=== PATIENT | female | born 1970 | race Caucasian/White ===

== ENCOUNTER 2019-10-08 02:41 | Emergency (ER) | payer BC ==
[2019-10-08] MEDS ORDERED: SODIUM CHLORIDE 0.9% 1,000 ML IV STA ×2 (02:51)
[2019-10-08] MEDS ORDERED: MORPHINE SULFATE 4 MG/ML SYRINGE IV STA (02:51)
--- NOTE | 2019-10-08 02:51 | ED ---
Chest Pain HPI - General Chief Complaint: Chest Pain Stated Complaint: Abd/Back/Chest Pain Time Seen by Provider: 10/08/19 02:49 Source: patient, RN notes reviewed, old records reviewed Mode of arrival: ambulatory Limitations: no limitations - History of Present Illness Initial Comments: This is a 41-year-old female DF for evaluation multiple complaints, epigastric pain for about a month. She also has nausea some episodic chest pain shortness of breath as well as abdominal pain rating to her back. Denies history of drug or alcohol abuse. No recent injuries or trauma no fevers cough or congestion no generalized body pains. No modifying factors for symptoms. Some significant episodic with no relation MD Complaint: chest pain, other (Abdominal pain to back) -: week(s) Onset: during rest, during exertion Pain Location: epigastric Pain Radiation: back Severity: mild Severity scale (1-10): 3 Quality: tightness, aching Consistency: intermittent Improves With: nothing Worsens With: nothing Anginal Symptoms: dyspnea Other Symptoms: palpitations, other (Diarrhea) Treatments Prior to Arrival: other - Related Data Home Medications Medication Instructions Recorded Confirmed Spironolactone 50 mg PO DAILY 09/15/16 10/10/19 Aspirin 81 mg PO DAILY 02/28/17 10/10/19 Previous Rx's Medication Instructions Recorded Acetaminophen Tab [Tylenol] 650 mg PO Q6HR PRN tab 10/11/19 Dicyclomine [Bentyl] 20 mg PO QID PRN #20 tab 10/11/19 Nicotine 21Mg/24Hr Patch [Habitrol] 1 patch TRANSDERM DAILY #14 patch 10/11/19 Omeprazole [PriLOSEC] 40 mg PO BID #60 cap 10/11/19 Allergies Allergy/AdvReac Type Severity Reaction Status Date / Time No Known Allergies Allergy Verified 10/10/19 10:20 Review of Systems ROS Statement: Those systems with pertinent positive or pertinent negative responses have been documented in the HPI. ROS Other: All systems not noted in ROS Statement are negative. EKG Findings - EKG Comments: EKG Findings:: EKG is sinus rhythm 81, ME 170 QRS 78 QTc 446 Past Medical History Past Medical History: CVA/TIA, Hypertension, No Reported History History of Any Multi-Drug Resistant Organisms: None Reported Past Surgical History: Section Past Psychological History: No Psychological Hx Reported Smoking Status: Current every day smoker Past Alcohol Use History: Daily, Heavy Past Drug Use History: None Reported General Exam Limitations: no limitations General appearance: alert, in no apparent distress, anxious Head exam: Present: atraumatic, normocephalic, normal inspection Eye exam: Present: normal appearance, PERRL, EOMI. Absent: scleral icterus, conjunctival injection, periorbital swelling ENT exam: Present: normal exam, mucous membranes moist Neck exam: Present: normal inspection. Absent: tenderness, meningismus, lymphadenopathy Respiratory exam: Present: normal lung sounds bilaterally. Absent: respiratory distress, wheezes, rales, rhonchi, stridor Cardiovascular Exam: Present: regular rate, normal rhythm, normal heart sounds. Absent: systolic murmur, diastolic murmur, rubs, gallop, clicks GI/Abdominal exam: Present: soft, normal bowel sounds. Absent: distended, tenderness, guarding, rebound, rigid Extremities exam: Present: normal inspection, full ROM, normal capillary refill. Absent: tenderness, pedal edema, joint swelling, calf tenderness Back exam: Present: normal inspection Neurological exam: Present: alert, oriented X3, CN II-XII intact Psychiatric exam: Present: normal affect, normal mood Skin exam: Present: warm, dry, intact, normal color. Absent: rash Course Vital Signs 10/08/19 10/08/19 10/08/19 02:46 04:25 04:41 Temperature 97.9 F 98.0 F Pulse Rate 94 85 Respiratory 18 16 Rate Blood Pressure 184/103 133/98 117/93 O2 Sat by Pulse 98 94 L Oximetry - Reevaluation(s) Reevaluation #1: Medical records reviewed Patient feels improved Patient informed of results and questions answered Chest Pain MDM - [facility] 41-year-old female with abdominal pain chest pain patient is CT HSM pelvis negative for significant injury. Normal labwork, feeling better here in the ER patient will be discharged home Disposition Clinical Impression: Atypical chest pain, Abdominal pain Disposition: HOME SELF-CARE Instructions (If sedation given, give patient instructions): Abdominal Pain (ED) Is patient prescribed a controlled substance at d/c from ED?: No Referrals: Manuel Kong MD [Primary Care Provider] - 1-2 days
[2019-10-08 03:29] LABS: Basophils # (A) 0.1 k/uL (0-0.2); Basophils % (A) 1 %; Eosinophils # (A) 0.2 k/uL (0-0.7); Eosinophils % (A) 3 %; HGB 13.4 gm/dL (11.4-16.0); Lymphocytes # (A) 2.1 k/uL (1.0-4.8); Lymphocytes % (A) 34 %; MCH 29.7 pg (25.0-35.0); MCHC 33.4 g/dL (31.0-37.0); MCV 88.8 fL (80.0-100.0); Mean Platelet Volume 7.1; Monocytes # (A) 0.3 k/uL (0-1.0); Monocytes % (A) 5 %; Neutrophils # (A) 3.5 k/uL (1.3-7.7); Neutrophils % (A) 56 %; Platelet Count 280 k/uL (150-450); RBC 4.51 m/uL (3.80-5.40); RDW 12.6 % (11.5-15.5); WBC 6.3 k/uL (3.8-10.6)
[2019-10-08 03:41] LABS: ALT 44 U/L (4-34); AST 49 U/L (14-36); African American GFR (CKD) >90 (>60 ml/min/1.73 sqM); Albumin 4.7 g/dL (3.5-5.0); Alkaline Phosphatase 77 U/L (38-126); Anion Gap 13 mmol/L; Blood Urea Nitrogen 5 mg/dL (7-17); Calcium 9.5 mg/dL (8.4-10.2); Carbon Dioxide 20 mmol/L (22-30); Chloride 94 mmol/L (98-107); Glucose 99 mg/dL (74-99); Magnesium 1.8 mg/dL (1.6-2.3); Non-African American GFR(CKD) >90 (>60 ml/min/1.73 sqM); Sodium 127 mmol/L (137-145); Total Bilirubin 0.2 mg/dL (0.2-1.3); Total Protein 7.8 g/dL (6.3-8.2)
[2019-10-08] MEDS ORDERED: LABETALOL 5 MG/ML VIAL MDV IVP STA (04:11)
--- NOTE | 2019-10-08 04:15 | CT ---
EXAMINATION TYPE: CT angio chest DATE OF EXAM: 10/08/2019 COMPARISON: None HISTORY: Chest pain CT DLP: 360.1 mGycm Automated exposure control for dose reduction was used. CONTRAST: Performed with IV Contrast, patient injected with 100 mL of Isovue 370. There are 3-D post processed images. The lungs are clear of infiltrate. There is no pleural effusion. There is no mediastinal adenopathy. There are no hilar masses. Thoracic aorta is intact. There is no aneurysm or dissection. Ascending ao rta measures 3.4 cm. There is no pericardial effusion. Heart size is normal. There is normal contrast opacification of the pulmonary arteries. There are no filling defects. Thoracic spine is intact. There is no compression fracture. Bony thorax is intact. IMPRESSION: Negative exam. No evidence of pulmonary embolism.
[2019-10-08 04:16] LABS: D-Dimer 0.58 mg/L FEU (<0.60); INR 0.9 (<1.2); Partial Thromboplastin Time 26.5 sec (22.0-30.0); Prothrombin Time 9.6 sec (9.0-12.0)
--- NOTE | 2019-10-08 04:20 | CT ---
EXAMINATION TYPE: CT abdomen pelvis w con DATE OF EXAM: 10/08/2019 COMPARISON: None HISTORY: Abdomen pain CT DLP: 742 mGycm Automated exposure control for dose reduction was used. CONTRAST: Performed with IV Contrast, patient injected with 100 mL of Isovue 370. Lung bases are clear. There is no pleural effusion. Heart size is normal. There is no pericardial eff usion. Liver spleen pancreas gallbladder stomach appear normal. Bile ducts are not dilated. There is no adrenal mass. Kidneys show satisfactory contrast opacification. There is no hydronephrosi s. Delayed images show normal renal excretion. There is no retroperitoneal adenopathy. Ureters are no t dilated. Bladder distends smoothly. There is no inguinal hernia. Uterus appears normal. Uterus retr overted. There is no free fluid in the pelvis. There is no evidence of pelvic mass. There are clips a pparently from tubal ligation. Appendix is posterior and appears normal. Appendix is short. There is no mesenteric edema. There is no ascites or free air. There is no sign of a bowel obstruction. Lumbar vertebra have normal spacing and alignment. There is no compression fracture. Posterior elemen ts are intact. The bony pelvis appears normal. Hip joint spaces are normal. IMPRESSION: Negative CT scan abdomen and pelvis.
[2019-10-08 04:42] VITALS: BP 117/93; PULSE 85; RESP 16; TEMP 98
== END 2019-10-08 04:43 | disposition home or self-care (01) ==
LOC: EC 02:41
DX: R07.89 Other chest pain (principal); R10.13 Epigastric pain; I10 Essential (primary) hypertension; F17.200 Nicotine dependence, unspecified, uncomplicated; Z79.899 Other long term (current) drug therapy; Z79.82 Long term (current) use of aspirin; Z86.73 Personal history of transient ischemic attack (TIA), and cerebral infarction without residual deficits
CPT/HCPCS: 36415; 85379; 83880; 80053; 83690; 83735; 84484; 85025; 85610; 85730; 71275; 74177; 96374; 96361; 99285; J2270; Q9967

== ENCOUNTER → 2019-10-09 | Outpatient (CLI) | payer BC ==
--- NOTE | 2019-10-09 14:12 | US ---
EXAMINATION TYPE: US abdomen complete DATE OF EXAM: 10/09/2019 COMPARISON: CT CLINICAL HISTORY: R10.9 Abd pain. Pain x 2 months EXAM MEASUREMENTS: Liver Length: 16.4 cm Gallbladder Wall: 0.2 cm CBD: 0.6 cm Spleen: 8.6 cm Right Kidney: 9.6 x 4.7 x 4.3 cm Left Kidney: 9.8 x 4.8 x 4.5 cm Pancreas: wnl, tail obscured by overlying bowel gas Liver: Heterogeneous, difficult to penetrate Gallbladder: wnl Evidence for sonographic Paula's sign: No CBD: wnl Spleen: wnl Right Kidney: wnl Left Kidney: wnl Upper IVC: wnl Abd Aorta: wnl No abnormality visualized to account for pt's symptoms Results called to Eula at 's office at time of exam The intrahepatic portion of the IVC and proximal abdominal aorta are within normal limits. There is no evidence of cholelithiasis. Common bile duct is unremarkable. The visualized portions of the irwin creas are homogenous. The spleen is unremarkable. Kidneys are symmetric and free of hydronephrosis. No renal lesions are seen. IMPRESSION: The liver is noted be heterogenous which may reflect fatty liver versus diffuse hepatocellular diseas e. Correlate clinically.
== END | disposition home or self-care (01) ==
LOC: RADUSWWP 13:44
PROVIDERS: ATTEND Family Medicine
DX: R10.9 Unspecified abdominal pain (principal)
CPT/HCPCS: 76700

== ENCOUNTER 2019-10-10 09:36 | Observation (INO) | payer BC ==
[2019-10-10] MEDS ORDERED: MORPHINE SULFATE 2 MG/ML SYRINGE IVP STA (10:18)
[2019-10-10] MEDS ORDERED: SODIUM CHLORIDE 0.9% 500 ML 500 ML IV STA (10:18)
[2019-10-10] MEDS ORDERED: ONDANSETRON 4 MG/2 ML VIAL IVP STA (10:18)
--- NOTE | 2019-10-10 10:22 | ED ---
General Adult HPI - General Chief complaint: Abdominal Pain Stated complaint: Abd Pain Time Seen by Provider: 10/10/19 09:57 Source: patient Mode of arrival: ambulatory Limitations: no limitations - History of Present Illness Initial comments: Dictation was produced using [employer] dictation software. please excuse any grammatical, word or spelling errors. This patient was cared for during a federal and state declared state of emergency secondary to Covid 19 Chief Complaint: 49-year-old female sent in by primary care physician for abd ominal pain. History of Present Illness: 49-year-old female she was initially seen here in emergency department 2 days ago for right upper quadrant abdominal pain. During that visit patient had labs and imaging performed. No physician charting available at this time upon EMR review. On the day however patient had CT angios those performed showing no acute processes. She had CT of the abdomen and pelvis showing no acute processes. She did have some labs drawn at that time showing no leukocytosis. She did have cervical 127. Slight elevation of liver Leandro however not impressive. She was discharged and told to follow-up with her primary care physician. Her primary care physician ordered a ultrasound of the right upper quadrant. Showing heterogeneous liver texture concerning for hepatocellular disease. She called her primary care physician back and was instructed to the emergency department. She was supposed to have a HIDA scan in the near future however considering her pain seemed worse she was told to come to the emergency department. Patient has any constitutional sympt oms. She complains of nausea but no vomiting. No diarrhea. She states the pain is constant. The ROS documented in this emergency department record has been reviewed and confirmed by me. Those systems with pertinent positive or negative responses have been documented in the HPI. All other systems are other negative and/or noncontributory. PHYSICAL EXAM: General Impression: Alert and oriented x3, not in acute distress HEENT: Normocephalic atraumatic, extra-ocular movements intact, pupils equal and reactive to light bilaterally, mucous membranes moist. Cardiovascular: Heart regular rate and rhythm Chest: Able to complete full sentences, no retractions, no tachypnea Abdomen: abdomen soft, tenderness to the right upper quadrant, negative Paula sign, non-distended, no organomegaly Musculoskeletal: Pulses present and equal in all extremities, no peripheral edema Motor: no focal deficits noted Neurological: CN II-XII grossly intact, no focal motor or sensory deficits noted Skin: Intact with no visualized rashes Psych: Normal affect and mood ED course: 49 old female presents with right upper quadrant abdominal pain. Said pain that she's been experiencing has been constant for several days. She was seen in emergency department 3 days ago where no acute processes were identified. Laboratory evaluation obtained. CBC unremarkable. Metabolic panel shows sodium 132. No anion gap. Mildly acidotic. AST is 71, ALT is 50. Urinalysis is unremarkable. Discussed patient case with Dr. Posada who is willing to accept patients care. GI and general surgery's on consult. - Related Data Home Medications Medication Instructions Recorded Confirmed Spironolactone 50 mg PO DAILY 09/15/16 10/10/19 Aspirin 81 mg PO DAILY 02/28/17 10/10/19 Omeprazole [PriLOSEC] 40 mg PO DAILY 10/10/19 10/10/19 Allergies Allergy/AdvReac Type Severity Reaction Status Date / Time No Known Allergies Allergy Verified 10/10/19 10:20 Review of Systems ROS Statement: Those systems with pertinent positive or pertinent negative responses have been documented in the HPI. ROS Other: All systems not noted in ROS Statement are negative. Past Medical History Past Medical History: CVA/TIA, Hypertension, No Reported History History of Any Multi-Drug Resistant Organisms: None Reported Past Surgical History: Section Past Psychological History: No Psychological Hx Reported Smoking Status: Current every day smoker Past Alcohol Use History: Daily, Heavy Past Drug Use History: None Reported General Exam Limitations: no limitations Course Vital Signs 10/10/19 10/10/19 09:51 11:22 Temperature 98.4 F Pulse Rate 108 H 69 Respiratory 20 18 Rate Blood Pressure 199/106 142/101 O2 Sat by Pulse 99 99 Oximetry Medical Decision Making - Lab Data Result diagrams: 10/10/19 10:20 10/10/19 10:20 Lab Results 10/10/19 10/10/19 10/10/19 Range/Units 10:20 10:20 11:22 WBC 6.4 (3.8-10.6) k/uL RBC 4.63 (3.80-5.40) m/uL Hgb 13.4 (11.4-16.0) gm/dL Hct 41.6 (34.0-46.0) % MCV 89.8 (80.0-100.0) fL MCH 28.9 (25.0-35.0) pg MCHC 32.2 (31.0-37.0) g/dL RDW 12.7 (11.5-15.5) % Plt Count 277 (150-450) k/uL Neutrophils % 73 % Lymphocytes % 17 % Monocytes % 5 % Eosinophils % 2 % Basophils % 1 % Neutrophils # 4.7 (1.3-7.7) k/uL Lymphocytes # 1.1 (1.0-4.8) k/uL Monocytes # 0.3 (0-1.0) k/uL Eosinophils # 0.1 (0-0.7) k/uL Basophils # 0.1 (0-0.2) k/uL Sodium 132 L (137-145) mmol/L Potassium 4.5 (3.5-5.1) mmol/L Chloride 101 (98-107) mmol/L Carbon Dioxide 20 L (22-30) mmol/L Anion Gap 11 mmol/L BUN 5 L (7-17) mg/dL Creatinine 0.64 (0.52-1.04) mg/dL Est GFR (CKD-EPI)AfAm >90 (>60 ml/min/1.73 sqM) Est GFR (CKD-EPI)NonAf >90 (>60 ml/min/1.73 sqM) Glucose 95 (74-99) mg/dL Calcium 10.2 (8.4-10.2) mg/dL Total Bilirubin 0.7 (0.2-1.3) mg/dL AST 71 H (14-36) U/L ALT 50 H (4-34) U/L Alkaline Phosphatase 74 (38-126) U/L Total Protein 7.8 (6.3-8.2) g/dL Albumin 4.5 (3.5-5.0) g/dL Lipase 201 (23-300) U/L Urine Color Light Yellow Urine Appearance Clear (Clear) Urine pH 5.0 (5.0-8.0) Ur Specific [place] 1.003 (1.001-1.035) Urine Protein Negative (Negative) Urine Glucose (UA) Negative (Negative) Urine Ketones 1+ H (Negative) Urine Blood Negative (Negative) Urine Nitrite Negative (Negative) Urine Bilirubin Negative (Negative) Urine Urobilinogen <2.0 (<2.0) mg/dL Ur Leukocyte Esterase Negative (Negative) Disposition Clinical Impression: Abdominal pain Disposition: ADMITTED IP TO THIS HOSP Condition: Fair Referrals: Manuel Kong MD [Primary Care Provider] - 1-2 days Decision Time: 11:44
[2019-10-10 10:32] LABS: Basophils # (A) 0.1 k/uL (0-0.2); Basophils % (A) 1 %; Eosinophils # (A) 0.1 k/uL (0-0.7); Eosinophils % (A) 2 %; HCT 41.6 % (34.0-46.0); HGB 13.4 gm/dL (11.4-16.0); Lymphocytes # (A) 1.1 k/uL (1.0-4.8); Lymphocytes % (A) 17 %; MCH 28.9 pg (25.0-35.0); MCHC 32.2 g/dL (31.0-37.0); MCV 89.8 fL (80.0-100.0); Mean Platelet Volume 7.2; Monocytes # (A) 0.3 k/uL (0-1.0); Monocytes % (A) 5 %; Neutrophils # (A) 4.7 k/uL (1.3-7.7); Neutrophils % (A) 73 %; Platelet Count 277 k/uL (150-450); RBC 4.63 m/uL (3.80-5.40); RDW 12.7 % (11.5-15.5); WBC 6.4 k/uL (3.8-10.6)
[2019-10-10 11:00] LABS: ALT 50 U/L (4-34); AST 71 U/L (14-36); African American GFR (CKD) >90 (>60 ml/min/1.73 sqM); Albumin 4.5 g/dL (3.5-5.0); Alkaline Phosphatase 74 U/L (38-126); Anion Gap 11 mmol/L; Blood Urea Nitrogen 5 mg/dL (7-17); Calcium 10.2 mg/dL (8.4-10.2); Carbon Dioxide 20 mmol/L (22-30); Chloride 101 mmol/L (98-107); Glucose 95 mg/dL (74-99); Non-African American GFR(CKD) >90 (>60 ml/min/1.73 sqM); Potassium 4.5 mmol/L (3.5-5.1); Sodium 132 mmol/L (137-145); Total Bilirubin 0.7 mg/dL (0.2-1.3); Total Protein 7.8 g/dL (6.3-8.2)
[2019-10-10 11:40] LABS: Appearance,Urine Clear (Clear); Bilirubin,Urine Negative (Negative); Blood,Urine Negative (Negative); Color,Urine Light Yellow; Glucose,Urine (UA) Negative (Negative); Ketones,Urine 1+ (Negative); Leukocyte Esterase,Urine Negative (Negative); Nitrite,Urine Negative (Negative); Protein,Urine Negative (Negative); Specific Gravity,Urine 1.003 (1.001-1.035); Urobilinogen,Urine <2.0 mg/dL (<2.0)
[2019-10-10] MEDS ORDERED: MORPHINE SULFATE 4 MG/ML SYRINGE IV PRN (11:41)
[2019-10-10] MEDS ORDERED: ONDANSETRON 4 MG/2 ML VIAL IVP PRN (11:41)
[2019-10-10] MEDS ORDERED: ACETAMINOPHEN TAB 325 MG TAB PO PRN (11:41)
[2019-10-10] MEDS ORDERED: NALOXONE 0.4 MG/ML 1 ML VIAL IV PRN (11:41)
[2019-10-10] MEDS ORDERED: SODIUM CHLORIDE 0.9% 1,000 ML IV SCH (11:45)
[2019-10-10] MEDS: LACTATED RINGERS 1,000 ML IV SCH ×2 (15:35→21:11)
[2019-10-10] MEDS: ENOXAPARIN 40 MG/0.4 ML SYRINGE SQ SCH (15:35)
[2019-10-10] MEDS: CALCIUM CARBONATE LIQUID 500 MG/5 ML CUP PO SCH ×3 (15:36→21:12)
--- NOTE | 2019-10-10 18:04 | P.HPIM ---
History of Present Illness H&P Date: 10/10/19 Chief Complaint: Abdominal pain History of presenting complaint: This is a pleasant 49-year-old patient of Dr. Manuel Kong. Chronic stable medical conditions include hypertension, polycystic ovarian syndrome, chronic nicotine dependence. Patient has a diagnosis of stroke in the past was given TPA. At that time and affect a speech. Following TPA the speech corrected. Patient has long-standing reflux symptoms. Patient smokes a pack a day since drinks about 6 beers at a plus minus she states. Patient now presents with increasing upper abdominal pain sometimes in the right upper quadrant sonogram going to the back. She is also noticing increasing burning sensation in the epigastrium going up to the chest. Also significant nausea. Patient was here in the ER on October 07. Chest CT was negative for PE. Computed tomography scan of the abdomen and pelvis was negative. Patient was sent home. Yesterday patient had an abdominal ultrasound ordered by her family doctor-evidence of gallstones." Unremarkable. Liver was noted to be heterogenesis. Patient was d ue to have a HIDA scan as an outpatient. Because her symptoms worsening. She came back to the ER. Patient does continue to smoke and drink alcohol. Patient appetite has not been good. Patient's pain is somewhat constant. Maybe worsening with oral intake. Denies any fever and chills. Review of systems: GEN.: Decreased appetite EYES: None HEENT: None NECK: None RESPIRATORY: None CARDIOVASCULAR: None GASTROINTESTINAL: As above GENITOURINARY: None MUSCULOSKELETAL: None LYMPHATICS: None HEMATOLOGICAL: None PSYCHIATRY: Slightly anxious NEUROLOGICAL: None Past medical history to include: History of stroke. TPA, GERD, hypertension, polycystic ovarian syndrome for which she takes Aldactone. Social history: Patient is smoking a pack a day for many years and also quit drinking average of 6 beers a day for quite some time. . Family history: Reviewed, noncontributory to presentation Physical examination: VITAL SIGNS: 98.4, 108, 20, 142/101, 99% room air GENERAL: BMI 24.5, sitting up at bed, somewhat uncomfortable. EYES: Pupils equal. Conjunctiva normal. HEENT: External appearance of nose and ears normal, oral cavity grossly normal. NECK: JVD not raised; masses not palpable. HEART: First and second heart sounds are normal; no edema. LUNGS: Respiratory rate increased, decreased breath sounds mild wheezing. ABDOMEN: Soft, upper abdominal tenderness, no guarding rigidity, negative Paula's sign, liver spleen not palpable, no masses palpable. PSYCH: [Alert and oriented x3; mood and affect anxious. NEUROLOGICAL: Cranial nerves grossly intact; no facial asymmetry, power and sensation grossly intact. LYMPHATICS: No lymph nodes palpable in the axilla and neck INVESTIGATIONS, reviewed in the clinical context: White count 6.4 hemoglobin 13.4 platelets 277 potassium 4.5 creatinine 0.64 AST 71 ALT 50 UA positive for ketones 1+ Computed tomography scan of the abdomen and pelvis, abdominal ultrasound results as above Assessment: -Distal patient is a long-standing smoker and drinks at least 6 beers a day more so in the past. Patient has significant reflux symptoms in the past and otherwise generalized pain in the upper abdomen and burning sensation in the chest. Computed tomography scan of the abdomen and ultrasound resolving remarkable except patient most likely liver findings of that from hepatic steatosis and alcoholic hepatitis. There are no gallstones demonstrated. Most likely we are dealing with gastritis and esophagitis, peptic ulcer disease cannot be ruled out. Possibility of dyskinetic gallbladder still persist. -Emphysema, secondary to active smoking -Chronic nicotine dependence cigarette smoker -Alcohol use disorder -Essential hypertension -Polycystic ovarian syndrome Plan: Patient be started on PPI liquid Tums for symptom control. GI has been consulted for the due to EGD tomorrow. We'll also get a general surgery con sultation. HIDA scan has been ordered. If patient's symptoms are significantly better with the PPI in and Tums, that'll be the most likely cause of her presentation. Patient advised against smoking and alcohol. We'll put the patient on a CIWA scale. Also put a small dose of Valium scheduled for DVT prophylaxis. We will also order a chest x-ray. Patient also put on nebulized bronchodilators and inhaled steroids. Smoke cessation counseling: This was done with the patient. Nicotine patch is being given. More than 3 minutes was spent for this Past Medical History Past Medical History: No Reported History, CVA/TIA, GERD/Reflux, Hypertension Additional Past Medical History / Comment(s): 2016 difficulty with speech/pt received TPA with resolvement of speech problem but was told later she did not have a stroke, toxemia with and lately b/p has been running higher pt thinks d/t abdominal pain, PCOS. History of Any Multi-Drug Resistant Organisms: None Reported Past Surgical History: Section, Tubal Ligation Additional Past Surgical History / Comment(s): MAURO, cystoscopy, L ganglion cyst removed, hysteroscopy-unable to do ablation d/t bladder adhered to uterus, D&C, bilateral myringotomy/tubes Past Anesthesia/Blood Transfusion Reactions: No Reported Reaction Smoking Status: Current every day smoker - Past Family History Father Family Medical History: COPD, Hyperlipidemia, Hypertension Mother Family Medical History: Coronary Artery Disease (CAD), Diabetes Mellitus, Hyperlipidemia, Hypertension Additional Family Medical History / Comment(s): Mother had CABG at the age of 52 yrs. Medications and Allergies Home Medications Medication Instructions Recorded Confirmed Type Spironolactone 50 mg PO DAILY 09/15/16 10/10/19 History Aspirin 81 mg PO DAILY 02/28/17 10/10/19 History Omeprazole [PriLOSEC] 40 mg PO DAILY 10/10/19 10/10/19 History Allergies Allergy/AdvReac Type Severity Reaction Status Date / Time No Known Allergies Allergy Verified 10/10/19 10:20 Physical Exam Vitals: Vital Signs Temp Pulse Resp BP Pulse Ox 10/10/19 15:38 67 18 140/97 99 10/10/19 12:29 86 18 144/98 96 10/10/19 11:22 69 18 142/101 99 10/10/19 09:51 98.4 F 108 H 20 199/106 99 Intake and Output 10/10/19 10/10/19 10/10/19 06:59 14:59 22:59 Other: Weight 60.645 kg Results CBC & Chem 7: 10/10/19 10:20 10/10/19 10:20 Labs: Abnormal Lab Results - Last 24 Hours (Table) 10/10/19 10/10/19 Range/Units 10:20 11:22 Sodium 132 L (137-145) mmol/L Carbon Dioxide 20 L (22-30) mmol/L BUN 5 L (7-17) mg/dL AST 71 H (14-36) U/L ALT 50 H (4-34) U/L Urine Ketones 1+ H (Negative) Thrombosis Risk Factor Assmnt - Choose All That Apply Any of the Below Risk Factors Present?: Yes Each Factor Represents 1 point: Age 41-60 years Other Risk Factors: No Other congenital or acquired thrombophilia - If yes, enter type in comment: No Thrombosis Risk Factor Assessment Total Risk Factor Score: 1 Thrombosis Risk Factor Assessment Level: Low Risk
--- NOTE | 2019-10-10 18:08 | NM ---
EXAMINATION TYPE: NM hepatobiliary w CCK DATE OF EXAM: 10/10/2019 COMPARISON: NONE HISTORY: Pain TECHNIQUE: After the intravenous administration of 4.96 mCi Tc 99m Mebrofenin hepatobiliary scintigra phy is performed. Immediate images post injection. FINDINGS: There is satisfactory initial accumulation of tracer by the liver. The gallbladder is visualized wit hin 25 minutes. The small bowel activity is noted within 45 minutes. At one hour CCK was administer ed, patient was injected with 1.2 mcg of Kinevac, and gallbladder ejection fraction is calculated at 40 %, in the normal range. Therefore there is no scintigraphic evidence of cystic or common bile [place] t obstruction to suggest acute cholecystitis or gallbladder dyskinesia. IMPRESSION: Exam is within normal limits.
[2019-10-10] MEDS: PANTOPRAZOLE 40 MG TABLET PO SCH (19:21)
[2019-10-10] MEDS: NICOTINE 21MG/24HR PATCH TRANSDERM SCH (19:21)
[2019-10-10] MEDS: diazePAM 2 MG TAB PO SCH (19:21)
[2019-10-10] MEDS: DICYCLOMINE 20 MG TAB PO SCH (22:42)
[2019-10-11] MEDS: diazePAM 2 MG TAB PO SCH ×2 (00:44→11:51)
--- NOTE | 2019-10-11 00:50 | P.CONS ---
History of Present Illness - Reason for Consult Consult date: 10/10/19 Abdominal pain Requesting physician: Carlos Posada - Chief Complaint Abdominal pain - History of Present Illness 49-year-old female with a medical history significant for hypertension, polycystic ovarian syndrome, nicotine use, and GERD who presented to the hospital for evaluation of abdominal pain. Patient was previously seen in the ER for similar complaint complaints a few days. Computed tomography scan of the abdomen was negative for any acute intra-abdominal process. Ultrasound of the abdomen showed a heterogeneous liver with no other acute findings. She reports pain in the right upper quadrant of her abdomen which has been going on for the past 2 months. This is been worse over the past 4 days. She describes it as sharp and constant. No prior episodes of similar pain. No regular NSAID use. No history of peptic ulcer disease. She does report nausea but no vomiting. She has a history of omeprazole therapy for treatment of reflux and reports this is fairly well-controlled, however if she misses a dose of omeprazole symptoms will be present. Generally bowel movements have been normal, however recently she has been having loose bowel movements. She denies any inciting event causing her symptoms including travel, unusual foods, sick contacts or new medications. No signs or symptoms of GI bleeding. No prior EGD. Review of Systems REVIEW OF SYSTEMS: CONSTITUTIONAL: Denies any fevers, chills, weight change or fatigue. CARDIOVASCULAR: Denies any chest pain, palpitations high or low blood pressures RESPIRATORY: Denies any shortness of breath, hemoptysis or cough. GENITOURINARY: No dysuria or hematuria. MUSCULOSKELETAL: No weakness reported. SKIN: Denies any new rashes or lesions, jaundice or pallor. PSYCHIATRIC: Denies any depression or anxiety. NEUROLOGY: Denies headache, denies any new focal deficits. EARS/NOSE/THROAT: No recent hearing change, congestion, nasal discharge or sore throat. EYES: No pain in eyes, discharge or change in vision. GASTROINTESTINAL: As per HPI. Past Medical History Past Medical History: No Reported History, CVA/TIA, GERD/Reflux, Hypertension Additional Past Medical History / Comment(s): 2016 difficulty with speech/pt received TPA with resolvement of speech problem but was told later she did not have a stroke, toxemia with and lately b/p has been running higher pt thinks d/t abdominal pain, PCOS. History of Any Multi-Drug Resistant Organisms: None Reported Past Surgical History: Section, Tubal Ligation Additional Past Surgical History / Comment(s): MAURO, cystoscopy, L ganglion cyst removed, hysteroscopy-unable to do ablation d/t bladder adhered to uterus, D&C, bilateral myringotomy/tubes Past Anesthesia/Blood Transfusion Reactions: No Reported Reaction Smoking Status: Current every day smoker - Past Family History Father Family Medical History: COPD, Hyperlipidemia, Hypertension Mother Family Medical History: Coronary Artery Disease (CAD), Diabetes Mellitus, Hyperlipidemia, Hypertension Additional Family Medical History / Comment(s): Mother had CABG at the age of 52 yrs. Medications and Allergies Home Medications Medication Instructions Recorded Confirmed Type Spironolactone 50 mg PO DAILY 09/15/16 10/10/19 History Aspirin 81 mg PO DAILY 02/28/17 10/10/19 History Omeprazole [PriLOSEC] 40 mg PO DAILY 10/10/19 10/10/19 History Allergies Allergy/AdvReac Type Severity Reaction Status Date / Time No Known Allergies Allergy Verified 10/10/19 10:20 Physical Exam Vitals: Vital Signs Temp Pulse Resp BP Pulse Ox 10/10/19 12:29 86 18 144/98 96 10/10/19 11:22 69 18 142/101 99 10/10/19 09:51 98.4 F 108 H 20 199/106 99 Intake and Output 10/09/19 10/10/19 10/10/19 22:59 06:59 14:59 Other: Weight 60.645 kg On physical examination, patient appears comfortable in no apparent distress. HEAD: Normocephalic, atraumatic. EYES: No scleral icterus. No conjunctival injection. MOUTH: No lesions, tongue midline. NECK: Trachea midline, no gross abnormalities. CHEST: Clear to auscultation with no wheezing or rhonchi appreciated. HEART: Regular rate and rhythm. ABDOMEN: Soft, mildly tender to palpation. Bowel sounds are positive. No organomegaly. No guarding or rigidity. EXTREMITIES: No pedal edema. SKIN: No rashes, no jaundice. NEUROLOGIC: Alert and oriented x3. No focal deficits. Results CBC & Chem 7: 10/10/19 10:20 10/10/19 10:20 Labs: Abnormal Lab Results - Last 24 Hours (Table) 10/10/19 10/10/19 Range/Units 10:20 11:22 Sodium 132 L (137-145) mmol/L Carbon Dioxide 20 L (22-30) mmol/L BUN 5 L (7-17) mg/dL AST 71 H (14-36) U/L ALT 50 H (4-34) U/L Urine Ketones 1+ H (Negative) CT scan - abdomen: report reviewed (Computed tomography scan of the abdomen negative for any intra-abdominal process with ultrasound significant for heterogeneous appearing liver.) Assessment and Plan (1) Abdominal pain Narrative/Plan: 49-year-old female with multiple medical comorbidities who presented back to the hospital after recently being seen in the ER with complaints of abdominal pain. She reports abdominal pain present over the past 2 months, worse over the 4 days prior to admission. Computed tomography scan performed in evaluation negative, ultrasound of the abdomen significant for heterogeneous liver. No prior episodes of similar pain the patient denies any history of peptic ulcer disease or regular NSAID use. She has been having some increased loose stool recently but denies any signs or symptoms of GI bleeding. Unclear etiology, may be related to uncontrolled reflux disease, underlying fibromyalgia, functional bowel disorder, peptic ulcer disease or other etiology. Current Visit: Yes Status: Acute Code(s): R10.9 - UNSPECIFIED ABDOMINAL PAIN SNOMED Code(s): 82612001 (2) GERD (gastroesophageal reflux disease) Current Visit: Yes Status: Acute Code(s): K21.9 - GASTRO-ESOPHAGEAL REFLUX DISEASE WITHOUT ESOPHAGITIS SNOMED Code(s): 599657668 Plan: Supportive care Clear liquid diet Nothing by mouth after midnight Plan for EGD tomorrow for further evaluation Bentyl added 4 times a day for abdominal pain Continue to monitor CBC, BMP, LFTs Thank you for allowing us to participate in the care of this patient we will continue to follow
[2019-10-11] MEDS: LACTATED RINGERS 1,000 ML IV SCH ×2 (04:02→10:44)
--- NOTE | 2019-10-11 06:06 | P.GSCN ---
History of Present Illness Consult date: 10/10/19 History of present illness: Patient seen and evaluated. Has been at bedside. Patient reports 2 months history of upper abdominal pain. Multiple diagnostic studies performed including CT of the abdomen and pelvis, ultrasound of the abdomen. Patient reports getting a HIDA scan. She also reports pain become moderate to severe crampy nature since Monday, the past 4 days leading to her admission. She reports hunger. She also reports thirst. At present, pain is tolerable. General surgery is consulted regarding bilateral upper abdominal pain. STUDIES: HIDA scan of the gallbladder demonstrates normal ejection fraction over 40% per report US gallbladder independently reviewed without gallstones or thickened gallbladder wall identified. CT of the abdomen and pelvis also independently reviewed without any free air, small bowel discharge and, intra-abdominal pathology. ASSESSMENT: 1. Subacute to chronic bilateral upper abdominal pain. PLAN: 1. All diagnostic studies at this point demonstrates no acute abdomen. 2. May benefit from assessment of endoscopy which may be performed as outpatient. 3. May start diet. 4. Follow-up as outpatient. Past Medical History Past Medical History: No Reported History, CVA/TIA, GERD/Reflux, Hypertension Additional Past Medical History / Comment(s): 2016 difficulty with speech/pt received TPA with resolvement of speech problem but was told later she did not have a stroke, toxemia with and lately b/p has been running higher pt thinks d/t abdominal pain, PCOS. History of Any Multi-Drug Resistant Organisms: None Reported Past Surgical History: Section, Tubal Ligation Additional Past Surgical History / Comment(s): MAURO, cystoscopy, L ganglion cyst removed, hysteroscopy-unable to do ablation d/t bladder adhered to uterus, D&C, bilateral myringotomy/tubes Past Anesthesia/Blood Transfusion Reactions: No Reported Reaction Smoking Status: Current every day smoker - Past Family History Father Family Medical History: COPD, Hyperlipidemia, Hypertension Mother Family Medical History: Coronary Artery Disease (CAD), Diabetes Mellitus, Hyperlipidemia, Hypertension Additional Family Medical History / Comment(s): Mother had CABG at the age of 52 yrs. Medications and Allergies Home Medications Medication Instructions Recorded Confirmed Type Spironolactone 50 mg PO DAILY 09/15/16 10/10/19 History Aspirin 81 mg PO DAILY 02/28/17 10/10/19 History Omeprazole [PriLOSEC] 40 mg PO DAILY 10/10/19 10/10/19 History Allergies Allergy/AdvReac Type Severity Reaction Status Date / Time No Known Allergies Allergy Verified 10/10/19 10:20 Surgical - Exam Vital Signs Temp Pulse Resp BP Pulse Ox 98.4 F 108 H 20 199/106 99 10/10/19 09:51 10/10/19 09:51 10/10/19 09:51 10/10/19 09:51 10/10/19 09:51 Results - Labs 10/10/19 10:20 10/10/19 10:20 Abnormal Lab Results - Last 24 Hours (Table) 10/10/19 10/10/19 Range/Units 10:20 11:22 Sodium 132 L (137-145) mmol/L Carbon Dioxide 20 L (22-30) mmol/L BUN 5 L (7-17) mg/dL AST 71 H (14-36) U/L ALT 50 H (4-34) U/L Urine Ketones 1+ H (Negative) Diabetes panel 10/10/19 Range/Units 10:20 Sodium 132 L (137-145) mmol/L Potassium 4.5 (3.5-5.1) mmol/L Chloride 101 (98-107) mmol/L Carbon Dioxide 20 L (22-30) mmol/L BUN 5 L (7-17) mg/dL Creatinine 0.64 (0.52-1.04) mg/dL Glucose 95 (74-99) mg/dL Calcium 10.2 (8.4-10.2) mg/dL AST 71 H (14-36) U/L ALT 50 H (4-34) U/L Alkaline Phosphatase 74 (38-126) U/L Total Protein 7.8 (6.3-8.2) g/dL Albumin 4.5 (3.5-5.0) g/dL Calcium panel 10/10/19 Range/Units 10:20 Calcium 10.2 (8.4-10.2) mg/dL Albumin 4.5 (3.5-5.0) g/dL Pituitary panel 10/10/19 Range/Units 10:20 Sodium 132 L (137-145) mmol/L Potassium 4.5 (3.5-5.1) mmol/L Chloride 101 (98-107) mmol/L Carbon Dioxide 20 L (22-30) mmol/L BUN 5 L (7-17) mg/dL Creatinine 0.64 (0.52-1.04) mg/dL Glucose 95 (74-99) mg/dL Calcium 10.2 (8.4-10.2) mg/dL Adrenal panel 10/10/19 Range/Units 10:20 Sodium 132 L (137-145) mmol/L Potassium 4.5 (3.5-5.1) mmol/L Chloride 101 (98-107) mmol/L Carbon Dioxide 20 L (22-30) mmol/L BUN 5 L (7-17) mg/dL Creatinine 0.64 (0.52-1.04) mg/dL Glucose 95 (74-99) mg/dL Calcium 10.2 (8.4-10.2) mg/dL Total Bilirubin 0.7 (0.2-1.3) mg/dL AST 71 H (14-36) U/L ALT 50 H (4-34) U/L Alkaline Phosphatase 74 (38-126) U/L Total Protein 7.8 (6.3-8.2) g/dL Albumin 4.5 (3.5-5.0) g/dL
[2019-10-11 08:49] VITALS: BMI 24.4
[2019-10-11] MEDS ORDERED: PANTOPRAZOLE 40 MG/10 ML VIAL IV SCH (09:00)
[2019-10-11] MEDS ORDERED: IV FLUID CONTINUATION 1,000 ML IV ONE (10:58)
[2019-10-11] MEDS ORDERED: PROPOFOL 10 MG/ML 20 ML VIAL IV ONE (10:59)
--- NOTE | 2019-10-11 11:32 | P.PCN ---
Date of Procedure: 10/11/19 Description of Procedure: BRIEF HISTORY: 49-year-old female with a medical history significant for hypertension, polycystic ovarian syndrome, nicotine use, and GERD who presented to the hospital for evaluation of abdominal pain. Patient was previously seen in the ER for similar complaint complaints a few days. Computed tomography scan of the abdomen was negative for any acute intra-abdominal process. Ultrasound of the abdomen showed a heterogeneous liver with no other acute findings. She reports pain in the right upper quadrant of her abdomen which has been going on for the past 2 months. This is been worse over the past 4 days. She describes it as sharp and constant. No prior episodes of similar pain. No regular NSAID use. No history of peptic ulcer disease. She does report nausea but no vomiting. She has a history of omeprazole therapy for treatment of reflux and reports this is fairly well-controlled, however if she misses a dose of omeprazole symptoms will be present. Generally bowel movements have been normal, however recently she has been having loose bowel movements. She denies any inciting event causing her symptoms including travel, unusual foods, sick contacts or new medications. No signs or symptoms of GI bleeding. No prior EGD. PROCEDURE PERFORMED: Esophagogastroduodenoscopy with biopsy. PREOPERATIVE DIAGNOSIS: Epigastric abdominal pain ESTIMATED BLOOD LOSS: Minimal. IV sedation per anesthesia. PROCEDURE: After informed consent was obtained, the patient was brought into the endoscopy unit. IV sedation was administered by Anesthesia under continuous monitoring. Initially the Olympus GIF-190 video endoscope was inserted into the mouth. Esophagus intubated without any difficulty. It was gradually advanced into the stomach and duodenum and carefully examined. The bulb and the second part of the duodenum appeared normal, with biopsies taken. The scope at this time was withdrawn to the stomach, adequately insufflated with air, and upon careful examination, mucosa of the antrum, body, cardia and the fundus appeared normal, except for some mild scattered erythema in the antrum and body suggestive of mild gastritis with biopsies taken. The scope was then withdrawn into the esophagus. The GE junction was located at 37 cm from the incisors, with a 2 cm hiatal hernia noted. The esophagus appeared normal, with biopsies of lower esophagus taken. There were no erosions or ulcerations seen and the patient tolerated the procedure well. IMPRESSION: 1. Gastritis antrum body, biopsied. 2. Small hiatal hernia. 3. Biopsies of the duodenum and lower esophagus RECOMMENDATIONS: The findings of this examination were discussed with the patient. Okay to resume diet. Continue Protonix therapy. Continue dicyclomine, can be discharged on as needed for abdominal pain. No further endoscopic evaluation planned. Okay for discharge when otherwise medically stable from GI perspective.
[2019-10-11] MEDS: PANTOPRAZOLE 40 MG TABLET PO SCH (11:51)
[2019-10-11] MEDS: CALCIUM CARBONATE LIQUID 500 MG/5 ML CUP PO SCH ×2 (11:51→12:40)
[2019-10-11] MEDS: ENOXAPARIN 40 MG/0.4 ML SYRINGE SQ SCH (11:51)
[2019-10-11] MEDS: DICYCLOMINE 20 MG TAB PO SCH ×2 (11:51→12:40)
[2019-10-11] MEDS: NICOTINE 21MG/24HR PATCH TRANSDERM SCH (11:52)
--- NOTE | 2019-10-11 12:06 | P.PN ---
Subjective Progress Note Date: 10/11/19 CHIEF COMPLAINT: abdominal pain HISTORY OF PRESENT ILLNESS: Patient examined at the bedside with Dr. Nolen. She currently denies abdominal pain. She reports eating a sandwich last night and tolerated it well without any increased pain, nausea, or vomiting. Vital signs are stable. She is afebrile. PHYSICAL EXAM: VITAL SIGNS: Reviewed GENERAL: Well-developed in no acute distress. HEENT: No sclera icterus. Extraocular movements grossly intact. Moist buccal mucosa. Head is atraumatic, normocephalic. Hears conversational speech. No nasal drainage. NECK: Supple without lymphadenopathy. CHEST: Non-labored respirations and equal bilateral excursions. CARDIOVASCULAR: Regular rate with regular rhythm. Palpable 2+ radial pulses. ABDOMEN: Soft. Nondistended. Nontender. MUSCULOSKELETAL: No clubbing or cyanosis. NEUROLOGIC: No focal or lateralizing signs. Cranial nerves II through XII grossly intact. PSYCH: Appropriate affect. Alert and oriented to person, place and time. SKIN: Well perfused. Good skin turgor. ASSESSMENT: 1. Abdominal pain PLAN: -Patient scheduled for EGD today with Dr. Hull. No surgical intervention recommended. She may follow up with GI outpatient. We will sign off. Please reconsult if needed Nurse practitioner note has been reviewed by physician. Signing provider agrees with the documented findings, assessment, and plan of care. Objective - Vital Signs Vital signs: Vital Signs Temp 98.0 F 10/11/19 04:05 Pulse 65 10/11/19 07:52 Resp 16 10/11/19 07:52 BP 155/91 10/11/19 04:05 Pulse Ox 98 10/11/19 04:05 Intake & Output 10/10/19 10/11/19 10/11/19 18:59 06:59 18:59 Intake Total 1500 50 Balance 1500 50 Weight 60.645 kg 60.645 kg Intake: IV 50 Intake, IV Titration 1500 Amount Lactated Ringers 1,000 ml 1500 @ 150 mls/hr IV .Q6H40M ON LICENSE OF [facility] Rx#:[id number] Other: Voiding Method Toilet Toilet # Voids 1 1 - Labs CBC & Chem 7: 10/10/19 10:20 10/10/19 10:20
[2019-10-11 12:47] VITALS: BP 141/93; PULSE 62; RESP 17; TEMP 98.2
--- NOTE | 2019-10-12 18:26 | P.DS ---
Providers Date of admission: 10/10/19 11:41 Expected date of discharge: 10/11/19 Attending physician: Carlos Posada Consults: 10/10/19 10:35 Consult Physician Routine Consulting Provider: Ramon Hull Consult Reason/Comments: RUQ pain Do you want consulting provider notified?: Yes 10/10/19 11:31 Consult Physician Routine Consulting Provider: Paz Nolen Consult Reason/Comments: abdominal pain Do you want consulting provider notified?: Yes Primary care physician: Manuel Kong [facility] Course: Chief Complaint: Abdominal pain History of presenting complaint: This is a pleasant 49-year-old patient of Dr. Manuel Kong. Chronic stable medical conditions include hypertension, polycystic ovarian syndrome, chronic nicotine dependence. Patient has a diagnosis of stroke in the past was given TPA. At that time and affect a speech. Following TPA the speech corrected. Patient has long-standing reflux symptoms. Patient smokes a pack a day since drinks about 6 beers at a plus minus she states. Patient now presents with increasing upper abdominal pain sometimes in the right upper quadrant sonogram going to the back. She is also noticing increasing burning sensation in the epigastrium going up to the chest. Also significant nausea. Patient was here in the ER on October 07. Chest CT was negative for PE. Computed tomography scan of the abdomen and pelvis was negative. Patient was sent home. Yesterday patient had an abdominal ultrasound ordered by her family doctor-evidence of gallstones." Unremarkable. Liver was noted to be heterogenesis. Patient was due to have a HIDA scan as an outpatient. Because her symptoms worsening. She came back to the ER. Patient does continue to smoke and drink alcohol. Patient appetite has not been good. Patient's pain is somewhat constant. Maybe worsening with oral intake. Denies any fever and chills. Patient admitted with suspicion of gastritis acute on chronic. HIDA scan was negative. Patient responded well to PPI and Tums. Symptoms much improved. Patient was counseled extensively about stopping alcohol and smoking. EGD did show gastritis. Discussion and discharge planning more than 35 minutes Consultation: Dr. Watson from general surgery Dr. Schroeder from GI Physical examination: VITAL SIGNS: 98.2, 62, 17, 141/93, 100% room air GENERAL: Sitting upon a chair, more comfortable EYES: Pupils equal. Conjunctiva normal. HEENT: External appearance of nose and ears normal, oral cavity grossly normal. NECK: JVD not raised; masses not palpable. HEART: First and second heart sounds are normal; no edema. LUNGS: Respiratory rate increased, decreased breath sounds mild wheezing. ABDOMEN: Soft, minimal tenderness, no guarding rigidity, negative Paula's sign, liver spleen not palpable, no masses palpable. PSYCH: [Alert and oriented x3; mood and affect normal. INVESTIGATIONS, reviewed in the clinical context: White count 6.4 hemoglobin 13.4 platelets 277 potassium 4.5 creatinine 0.64 AST 71 ALT 50 UA positive for ketones 1+ Computed tomography scan of the abdomen and pelvis, abdominal ultrasound results as above EGD-gastritis Assessment: -Acute on chronic gastritis. H. pylori to be ruled out.. -Emphysema, secondary to active smoking -Chronic nicotine dependence cigarette smoker -Alcohol use disorder -Essential hypertension -Polycystic ovarian syndrome Disposition: Home Patient Condition at Discharge: Stable Plan - Discharge Summary Discharge Rx Participant: No New Discharge Prescriptions: New Dicyclomine [Bentyl] 20 mg PO QID PRN #20 tab PRN Reason: Spasms Nicotine 21Mg/24Hr Patch [Habitrol] 1 patch TRANSDERM DAILY #14 patch Acetaminophen Tab [Tylenol] 650 mg PO Q6HR PRN tab PRN Reason: Mild Pain Or Fever > 100.5 Continue Aspirin 81 mg PO DAILY Changed Omeprazole [PriLOSEC] 40 mg PO BID #60 cap No Action Spironolactone 50 mg PO DAILY Discharge Medication List Spironolactone 50 mg PO DAILY 09/15/16 [History] Aspirin 81 mg PO DAILY 02/28/17 [History] Acetaminophen Tab [Tylenol] 650 mg PO Q6HR PRN tab 10/11/19 [Rx] Dicyclomine [Bentyl] 20 mg PO QID PRN #20 tab 10/11/19 [Rx] Nicotine 21Mg/24Hr Patch [Habitrol] 1 patch TRANSDERM DAILY #14 patch 10/11/19 [Rx] Omeprazole [PriLOSEC] 40 mg PO BID #60 cap 10/11/19 [Rx] Follow up Appointment(s)/Referral(s): Manuel Kong MD [Primary Care Provider] - 1 Week (office closed please call office to set up appt. time and date.) Ramon Hull MD [STAFF PHYSICIAN] - 2 Weeks (office is closed. Please call office to set up appt. time and date) Patient Instructions/Handouts: Dicyclomine (By mouth), Omeprazole (By mouth), Nicotine (Absorbed through the skin), Antacid, Calcium and Magnesium (By mouth), Gastritis (DC) Activity/Diet/Wound Care/Special Instructions: liquid tums tid OTC Discharge Disposition: HOME SELF-CARE
== END 2019-10-11 15:56 | disposition home or self-care (01) ==
LOC: EC 09:36 → 5NMEDONC 11:41
PROVIDERS: ADMIT Hospitalist; ATTEND Hospitalist
DX: K29.00 Acute gastritis without bleeding (principal); K29.50 Unspecified chronic gastritis without bleeding; K31.89 Other diseases of stomach and duodenum; K22.8 Other specified diseases of esophagus; K44.9 Diaphragmatic hernia without obstruction or gangrene; J43.9 Emphysema, unspecified; F17.210 Nicotine dependence, cigarettes, uncomplicated; Z72.89 Other problems related to lifestyle; I10 Essential (primary) hypertension; E28.2 Polycystic ovarian syndrome; R93.2 Abnormal findings on diagnostic imaging of liver and biliary tract; K21.9 Gastro-esophageal reflux disease without esophagitis; Z03.818 Encounter for observation for suspected exposure to other biological agents ruled out; Z79.899 Other long term (current) drug therapy; Z79.82 Long term (current) use of aspirin; Z86.73 Personal history of transient ischemic attack (TIA), and cerebral infarction without residual deficits; Z98.890 Other specified postprocedural states; Z71.41 Alcohol abuse counseling and surveillance of alcoholic; Z71.6 Tobacco abuse counseling; Z87.59 Personal history of other complications of pregnancy, childbirth and the puerperium; Z98.51 Tubal ligation status; Z96.22 Myringotomy tube(s) status; Z82.5 Family history of asthma and other chronic lower respiratory diseases; Z83.438 Family history of other disorder of lipoprotein metabolism and other lipidemia; Z82.49 Family history of ischemic heart disease and other diseases of the circulatory system; Z83.3 Family history of diabetes mellitus
CPT/HCPCS: 96361; 96372; 96374; 96375; 99285; 36415; 88305; 80053; 83690; 85025; 81003; 78227; 43239; G0378 ×2; U0003; A9537; S4990 ×2; J2405; J2805; J1650 ×2; J2270; J2704

== ENCOUNTER → 2020-12-25 | Outpatient (CLI) | payer BC ==
--- NOTE | 2020-12-25 12:36 | CT ---
EXAMINATION TYPE: CT chest wo con DATE OF EXAM: 12/25/2020 COMPARISON: 10/08/2019 HISTORY: Solitary Pulmonary Nodule CT DLP: 178.3 mGycm, Automated exposure control for dose reduction was used. CONTRAST: Performed injected with 0 mL of Isovue 300. TECHNIQUE: Axial images were obtained at 5 mm thick sections. Reconstructed images are reviewed on [employer] computer in the coronal plane. FINDINGS: Portion of the thyroid visualized is normal. The lobular irregular density measuring 2.0 x 1.5 cm right mid lung. Series 5 image 24.2 this is new from comparison. There is a new tube 1 x 1.8 cm irregular density in the right middle lobe. Series 4 image 30 is 0.5 cm nodule is inferior in the right middle lobe. Series 5 image 32 No enlarged mediastinal or hilar adenopathy is evident. The ascending aorta diameter at the level o f the main pulmonary artery is 3.6 cm. The main pulmonary artery diameter at the bifurcation is 2.[address] sections are obtained through the upper abdomen. Abdomen is essentially unremarkable. IMPRESSIONS: 1. 2 irregular densities over the small nodule within the right mid lung extending into the right mid dle lobe. Workup for neoplasm is recommended.
== END | disposition home or self-care (01) ==
LOC: RADCTMAIN 07:54
PROVIDERS: ATTEND Family Medicine
DX: R91.8 Other nonspecific abnormal finding of lung field (principal); R91.1 Solitary pulmonary nodule
CPT/HCPCS: 71250

== ENCOUNTER → 2020-12-28 | Outpatient (CLI) | payer BC ==
--- NOTE | 2020-12-30 09:50 | MM ---
Reason for exam: screening (asymptomatic). Last mammogram was performed 3 years and 11 months ago. History: Patient is postmenopausal. Took hormonal contraceptives for 15 years. Physical Findings: A clinical breast exam by your physician is recommended on an annual basis and results should be correlated with mammographic findings. MG 3D Screening Mammo W/Cad Bilateral CC and MLO view(s) were taken. Prior study comparison: January 24, 2017, bilateral MG screening mammo w CAD. No significant changes when compared with prior studies. ASSESSMENT: Benign, BI-RAD 2 RECOMMENDATION: Routine screening mammogram of both breasts in 1 year.
== END | disposition home or self-care (01) ==
LOC: RADMAMWWP 16:36
PROVIDERS: ATTEND Family Medicine
DX: Z12.31 Encounter for screening mammogram for malignant neoplasm of breast (principal)
CPT/HCPCS: 77063; 77067

== ENCOUNTER → 2021-01-15 | Outpatient (CLI) | payer BC ==
--- NOTE | 2021-01-19 15:07 | PE ---
Nuclear medicine PET/CT HISTORY: Lung nodule, C 91.1, initial Patient received 10.6 mCi F-18 FDG intravenously in delayed scanning was performed from the skull bas e to the mid thighs. Localization and attenuation correction CT scan was performed. Correlation to CT scan 12/25/2020 Chest and neck: There is no cervical or supraclavicular adenopathy. No mediastinal, axillar, or hilar adenopathy. There is no pleural effusion or pericardial effusion. Ill-defined area of increased atte nuation is present in the right upper lobe and appears stable, SUV 0.7. ABDOMEN: There is no adrenal mass. There is no evident liver mass or ascites. No retroperitoneal vincent opathy. No pelvic adenopathy. Osseous structures show no suspicious uptake. IMPRESSION: No associated uptake with patient's lesion in the right upper lobe. Follow-up to assess f or stability.
== END | disposition home or self-care (01) ==
LOC: RADPETMAIN 15:42
PROVIDERS: ATTEND Internal Medicine
DX: R91.1 Solitary pulmonary nodule (principal)
CPT/HCPCS: 78815; A9552

== ENCOUNTER → 2021-05-18 | Outpatient (CLI) | payer BC ==
--- NOTE | 2021-05-18 15:52 | CT ---
EXAMINATION TYPE: CT chest w con DATE OF EXAM: 05/18/2021 COMPARISON: CT chest 12/25/2020 and 10/08/2019. PET CT 01/15/2021. HISTORY: Lung nodule. CT DLP: 224.8 mGycm. Automated Exposure Control for Dose Reduction was Utilized. TECHNIQUE: CT scan of the thorax is performed following with IV Contrast, patient injected with 100m l mL of Isovue 300. FINDINGS: LUNGS: Irregular nodule or nodular consolidation right upper lobe is less prominent measuring 1.3 x 0 .7 cm current study image 26. Inferior and medial to this there is 1.6 x 1.2 cm irregular nodule or n odular consolidation. Both are only slightly smaller in size but there are significant central improv ed aeration. There is 5 mm residual nodularity inferior to this axial image 32 and 8 x 3 mm nodule ax ial image 33 both slightly larger versus most recent CT. Left lung remains clear. No pleural effusion or pneumothorax seen bilaterally. MEDIASTINUM: There are no greater than 1 cm hilar or mediastinal lymph nodes. No cardiomegaly or pe ricardial effusion is seen. OTHER: Mild to moderate multilevel spurring in the spine. IMPRESSION: Improving nodules or nodular consolidation in the right upper lobe as detailed above, bot h were noted ametabolic suspect resolving inflammatory or infectious process. There are however 2 sub centimeter nodules which are more prominent or slightly larger in size and would advise short-term CT follow-up in 6 months time to reassess.
== END | disposition home or self-care (01) ==
LOC: RADCTMAIN 14:33
PROVIDERS: ATTEND Internal Medicine
DX: R91.8 Other nonspecific abnormal finding of lung field (principal)
CPT/HCPCS: 71260; Q9967

== ENCOUNTER 2021-07-27 10:01 | Day surgery (SDC) | payer BC ==
[2021-07-22 11:56] VITALS: BMI 24.3
[~2021-07-27 10:01] MED LIST: LACTATED RINGERS 1,000 ML IV SCH; LIDOCAINE 1% (10MG/ML) FOR IV START INTRADERMA PRN
[2021-07-27 10:39] VITALS: RESP 16; TEMP 98.2
[2021-07-27] MEDS ORDERED: LIDOCAINE 1% INJ 10MG/ML (20 ML MDV) ONE (11:13)
[2021-07-27] MEDS ORDERED: PROPOFOL 10 MG/ML 20 ML VIAL IV ONE (11:13)
--- NOTE | 2021-07-27 11:35 | P.PCN ---
Date of Procedure: 07/27/21 Procedure(s) Performed: BRIEF HISTORY: Patient is a 51-year-old pleasant female scheduled for an elective colonoscopy as a part of screening for colorectal neoplasia. PROCEDURE PERFORMED: Colonoscopy. PREOPERATIVE DIAGNOSIS: Screening for colon cancer. IV sedation per Anesthesia. PROCEDURE: After informed consent was obtained, the patient, was brought into the endoscopy unit. IV sedation was administered by Anesthesia under continuous monitoring. Digital rectal examination was normal. Initially the Olympus CF-160 flexible video colonoscope was then inserted in the rectum, gradually advanced into the cecum without any difficulty. Careful examination was performed as the scope was gradually being withdrawn. Ileocecal valve and the appendiceal orifice were visualized and appeared normal. Prep was fair.. Mucosa of the cecum, ascending colon, transverse colon, descending colon, sigmoid colon, and rectum appeared normal. Retroflexion was performed in the rectum and no lesions were seen. The patient tolerated the procedure well. IMPRESSION: Normal-appearing colon from rectum to cecum no evidence of colorectal neoplasia . RECOMMENDATIONS: Findings of this examination were discussed with the patient as well as a family. She was advised to have a repeat screening colonoscopy in 10 years..
[2021-07-27 12:17] VITALS: BP 161/81; PULSE 66
== END 2021-07-27 12:13 | disposition home or self-care (01) ==
LOC: ORWHC2ENDO 10:01
PROVIDERS: ATTEND Internal Medicine Gastroenterology
DX: Z12.11 Encounter for screening for malignant neoplasm of colon (principal); K21.9 Gastro-esophageal reflux disease without esophagitis
CPT/HCPCS: 45378; 81025; J2001; J2704

== ENCOUNTER → 2021-11-02 | Outpatient (CLI) | payer BC ==
--- NOTE | 2021-11-02 09:36 | CT ---
EXAMINATION TYPE: CT chest w con CT DLP: 251.3 mGycm, Automated exposure control for dose reduction was used. DATE OF EXAM: 11/02/2021 9:19 AM COMPARISON: CT chest 05/18/2021, PET/CT 01/15/2021. CLINICAL INDICATION:Female, 51 years old with history of R91.1 LUNG NODULE; TECHNIQUE: Multiple axial images were obtained through the chest following the administration of 70 c c of Isovue 300. Coronal and sagittal reformats reviewed. FINDINGS: LUNGS/ PLEURA: No pneumothorax or pleural effusion. Improving nodular consolidation/groundglass opac ities in the right upper lobe. These include a 0.9 cm region in the right upper lobe (series 4, image 23), previously 1.3 cm. And a right upper lobe 2.1 x 1.2 cm region with more groundglass appearance (series 4, image 28). The satellite nodule has resolved from prior examination. No new or enlarging p ulmonary nodules. AIRWAY: Patent and unremarkable.. HEART: Size within normal limits. MEDIASTINUM: No gross evidence of adenopathy. VASCULATURE: No aortic aneurysm. MUSCULOSKELETAL: No acute osseous abnormalities. Mild degenerative disc disease. SOFT TISSUES/LYMPH NODES: Unremarkable. LOWER NECK: No significant findings. UPPER ABDOMEN: No significant findings. IMPRESSION: Continued improving nodular consolidations/groundglass opacities in the right upper lobe from prior e xamination. Resolution of previously demonstrated subcentimeter right upper lobe nodules. These likel y represent a resolving inflammatory/infectious process. No new or enlarging pulmonary nodules. Follo w-up examination in 6 months is recommended to assess resolution.
== END | disposition home or self-care (01) ==
LOC: RADCTMAIN 08:12
PROVIDERS: ATTEND Internal Medicine
DX: R91.8 Other nonspecific abnormal finding of lung field (principal)
CPT/HCPCS: 71260; Q9967

== ENCOUNTER 2022-07-13 23:19 | Inpatient (IN) | payer BC ==
[2022-07-13] MEDS ORDERED: ALTEPLASE 56 MG in EMPTY BAG 1 BAG IV STA (23:22)
[2022-07-13] MEDS ORDERED: Alteplase PER PHARMACY Stroke 1 EACH MISC MISCELLANE PRN (23:22)
[2022-07-13] MEDS ORDERED: ALTEPLASE BOLUS FOR STROKE 6 MG in EMPTY SYRINGE 1 SYR IV STA (23:22)
--- NOTE | 2022-07-13 23:28 | ED ---
General Adult HPI - General Chief complaint: Neuro Symptoms/Deficit Stated complaint: Stroke Time Seen by Provider: 07/13/22 23:20 Source: family Mode of arrival: EMS - History of Present Illness Initial comments: Dictation was produced using [employer] dictation software. please excuse any grammatical, word or spelling errors. Chief Complaint: 52-year-old female past medical history of CVA presents to emergency room for stroke symptoms History of Present Illness: 52-year-old female last known normal was 9 to 9:30 PM. Patient is a history of stroke which caused similar symptoms in the past. She has severe dysarthria. Patient does not take any anticoagulation medications. She did receive alteplase at some point which completely resolved her symptoms. Patient denies any weakness. No numbness and paresthesias to extremities. Patient only able to answer yes or no questions. She is severely dysarthric. EMS states that she has stable vitals upon their evaluation. The ROS documented in this emergency department record has been reviewed and confirmed by me. Those systems with pertinent positive or negative responses have been documented in the HPI. All other systems are other negative and/or noncontributory. PHYSICAL EXAM: General Impression: Alert and oriented, not in acute distress, responds to commands appropriately HEENT: Normocephalic atraumatic, extra-ocular movements intact, pupils equal and reactive to light bilaterally, mucous membranes moist. Cardiovascular: Heart regular rate and rhythm Chest: Able to complete full sentences, no retractions, no tachypnea Abdomen: abdomen soft, non-tender, non-distended, no organomegaly Musculoskeletal: Pulses present and equal in all extremities, no peripheral edema Motor: no focal deficits noted Neurological: CN II-XII grossly intact, no focal motor or sensory deficits noted, severely dysarthric Skin: Intact with no visualized rashes Psych: Normal affect and mood ED course: 52-year-old female with strokelike symptoms since 9:00 PM last low- normal was around 9 to 9:30 PM. patient NIH score of 2 however it's severe dysarthria. Patient again for alteplase. Case discussed with stroke neurologist who recommends alteplase administration patient consents and CT brain is normal. Nursing notes and chart review was performed CT brain interpreted by myself showed no intracranial bleed. CT brain also reviewed with radiologist. No intracranial bleed. Risk and benefits are discussed with patient regarding outplace demonstration. She is agreeable. Thrombolytics administered at 1134. My EKG interpretation: Ventricular rate 84, sinus rhythm,. 181, QRS 106, QTC 417. No MD prolongation, no QTC prolongation, no ST or T-wave changes noted. EKG compared to 10/08/2019 showing no changes. Overall, this EKG is unremarkable Was pt. sent in by a medical professional or institution (, PA, ASSOCIATE PROFESSOR OF GEOGRAPHY, urgent care, hospital, or retirement...) When possible be specific @ -No Did you speak to anyone other than the patient for history (EMS, parent, family, police, friend...)? What history was obtained from this source @ -EMS Did you review nursing and triage notes (agree or disagree)? Why? @ -I reviewed and agree with nursing and triage notes Were old charts reviewed (outside hosp., previous admission, EMS record, old EKG, old radiological studies, urgent care reports/EKG's, retirement records)? Report findings @ -Prior imaging studies were reviewed Differential Diagnosis (chest pain, altered mental status, abdominal pain women, abdominal pain men, vaginal bleeding, musculoskeletal, weakness, fever, dyspnea, syncope, headache, dizziness, GI bleed, back pain, seizure, CVA, palpatations, mental health)? @ - Differential CVA: Ischemic stroke, hemorrhagic stroke, brain tumor, atypical migraine, Wernicke's encephalopathy, seizure, multiple sclerosis, meningitis, encephalitis, hypoglycemia, Guillain-Naylor, electrolytes disturbance, myasthenia gravis.... This is not meant to be an all-inclusive list EKG interpreted by me (3pts min.). @ -See above X-rays interpreted by me (1pt min.). @ -Chest x-ray unremarkable CT interpreted by me (1pt min.). @ -Computed tomography scan of the brain shows no intracranial bleed. CT angiography of the head and neck shows no large vessel occlusion U/S interpreted by me (1pt. min.). @ -None done What testing was considered but not performed or refused? (CT, X-rays, U/S, labs)? Why? @ -None What meds were considered but not given or refused? Why? @ -None Did you discuss the management of the patient with other professionals (professionals i.e. , PA, ASSOCIATE PROFESSOR OF GEOGRAPHY, lab, RT, psych nurse, social worker clinical, truck rental manager, teacher, restoration officer, keycase assembler)? Give summary @ -Discussed with account receivable associate for ICU admission. Case also discussed with hospitalist for hospital admission. Was smoking cessation discussed for >3mins.? @ -No Was critical care preformed (if so, how long)? @ -Yes, 77 minutes Were there social determinants of health that impacted care today? How? (Homelessness, low income, unemployed, alcoholism, drug addiction, transportation, low edu. Level, literacy, decrease access to med. care, senior living, rehab)? @ -No Was there de-escalation of care discussed even if they declined (Discuss DNR or withdrawal of care, Hospice)? DNR status @ -No What co-morbidities impacted this encounter? (DM, HTN, Smoking, COPD, CAD, Cancer, CVA, ARF, Chemo, Hep., AIDS, mental health diagnosis, sleep apnea, morbid obesity)? @ -None Was patient admitted / discharged? Hospital course, mention meds given and route, prescriptions, significant lab abnormalities, going to OR and other pertinent info. @ -52-year-old female presents with strokelike symptoms. She is a candidate for alteplase. Computed tomography scan of brain is unremarkable. Patient given alteplase. Laboratory evaluation obtained. CBC unremarkable. Metabolic panel shows hyponatremia 129. 5.7 potassium likely secondary to homolysis. Rest of labs unremarkable. Patient given IV fluids to treat hyponatremia. Patient monitored in the emergency department. Patient's symptoms resolved after alteplase administration. Imaging studies are unremarkable. Patient be admitted to the ICU for medical monitoring status post thrombolytics. Neurology consulted. Undiagnosed new problem with uncertain prognosis? @ -No Drug Therapy requiring intensive monitoring for toxicity (Heparin, Nitro, Insulin, Cardizem)? @ -Yes Were any procedures done? @ -No Diagnosis/symptom? Acute, or Chronic, or Acute on Chronic? Uncomplicated (without systemic symptoms) or Complicated (systemic symptoms)? @ -1. Cerebrovascular accident Side effects of treatment? @ -Hemorrhage Exacerbation, Progression, or Severe Exacerbation? @ -No Poses a threat to life or bodily function? How? (Chest pain, USA, CT, pneumonia, PE, COPD, DKA, ARF, appy, cholecystitis, CVA, Diverticulitis, Homicidal, Suicidal, threat to staff... and all critical care pts) @ -Yes - Related Data Home Medications Medication Instructions Recorded Confirmed Spironolactone 50 mg PO DAILY 09/15/16 07/27/21 Aspirin 81 mg PO DAILY 02/28/17 07/27/21 Metoprolol Succinate (ER) [Toprol 25 mg PO QAM 07/22/21 07/27/21 Xl] Omeprazole [PriLOSEC] 40 mg PO DAILY 07/22/21 07/27/21 Sertraline HCl [Zoloft] 50 mg PO DAILY 07/22/21 07/27/21 Trazodone (Unknown Dose) 1 tab PO HS PRN 07/22/21 07/27/21 Allergies Allergy/AdvReac Type Severity Reaction Status Date / Time No Known Allergies Allergy Verified 07/13/22 23:23 Review of Systems ROS Statement: Those systems with pertinent positive or pertinent negative responses have been documented in the HPI. ROS Other: All systems not noted in ROS Statement are negative. Past Medical History Past Medical History: CVA/TIA, GERD/Reflux, Hypertension, Sleep Apnea/CPAP/BIPAP Additional Past Medical History / Comment(s): Hx difficulty with speech/received TPA with resolvement of speech problem(2017), was told later she did not have a stroke. Hx Toxemia with . Abdominal pain, PCOS. "Touch of Sleep Apnea", no CPAP use. History of Any Multi-Drug Resistant Organisms: None Reported Past Surgical History: Section, Ear Surgery, Tubal Ligation Additional Past Surgical History / Comment(s): MAURO, cystoscopy, left ganglion cyst removed, hysteroscopy-unable to do ablation because bladder adhered to uterus, D&C, bilateral myringotomy/tubes. Past Anesthesia/Blood Transfusion Reactions: No Reported Reaction Past Psychological History: Anxiety, Depression Smoking Status: Former smoker Past Alcohol Use History: Heavy Past Drug Use History: None Reported - Past Family History Father Family Medical History: COPD, Hyperlipidemia, Hypertension Mother Family Medical History: Coronary Artery Disease (CAD), Diabetes Mellitus, Hyperlipidemia, Hypertension Additional Family Medical History / Comment(s): Mother had CABG at the age of 52 yrs. Course Vital Signs 07/13/22 07/13/22 07/13/22 23:36 23:37 23:51 Temperature 97.7 F Pulse Rate 87 79 Pulse Rate [ 85 86 Thread Inspector ] Respiratory 18 16 14 Rate Blood Pressure 166/125 157/98 Blood Pressure 165/108 166/125 [Right Arm] O2 Sat by Pulse 98 99 97 Oximetry 07/13/22 07/14/22 07/14/22 23:52 00:06 00:07 Temperature Pulse Rate 86 Pulse Rate [ 83 86 Thread Inspector ] Respiratory 14 16 16 Rate Blood Pressure 140/96 Blood Pressure 157/98 [Right Arm] O2 Sat by Pulse 98 99 99 Oximetry 07/14/22 07/14/22 07/14/22 00:21 00:23 00:37 Temperature Pulse Rate 75 75 Pulse Rate [ 78 Thread Inspector ] Respiratory 16 16 16 Rate Blood Pressure 122/91 122/91 Blood Pressure 133/93 [Right Arm] O2 Sat by Pulse 98 99 98 Oximetry 07/14/22 01:07 Temperature Pulse Rate Pulse Rate [ 85 Thread Inspector ] Respiratory 16 Rate Blood Pressure Blood Pressure [Right Arm] O2 Sat by Pulse 97 Oximetry Medical Decision Making - Lab Data Result diagrams: 07/13/22 23:23 07/13/22 23:23 Lab Results 07/13/22 07/13/22 07/13/22 Range/Units 23:23 23:23 23:23 WBC 7.2 (3.8-10.6) k/uL RBC 4.00 (3.80-5.40) m/uL Hgb 12.2 (11.4-16.0) gm/dL Hct 35.5 (34.0-46.0) % MCV 88.7 (80.0-100.0) fL MCH 30.5 (25.0-35.0) pg MCHC 34.4 (31.0-37.0) g/dL RDW 12.4 (11.5-15.5) % Plt Count 306 (150-450) k/uL MPV 8.0 Neutrophils % 58 % Lymphocytes % 30 % Monocytes % 5 % Eosinophils % 2 % Basophils % 1 % Neutrophils # 4.2 (1.3-7.7) k/uL Lymphocytes # 2.2 (1.0-4.8) k/uL Monocytes # 0.4 (0-1.0) k/uL Eosinophils # 0.2 (0-0.7) k/uL Basophils # 0.1 (0-0.2) k/uL PT 10.1 (9.0-12.0) sec INR 0.9 (<1.2) APTT 25.5 (22.0-30.0) sec Sodium 129 L (137-145) mmol/L Potassium 5.7 H (3.5-5.1) mmol/L Chloride 96 L (98-107) mmol/L Carbon Dioxide 21 L (22-30) mmol/L Anion Gap 12 mmol/L BUN 10 (7-17) mg/dL Creatinine 0.59 (0.52-1.04) mg/dL Est GFR (CKD-EPI)AfAm >90 (>60 ml/min/1.73 sqM) Est GFR (CKD-EPI)NonAf >90 (>60 ml/min/1.73 sqM) Glucose 106 H (74-99) mg/dL POC Glucose (mg/dL) (70-110) mg/dL POC Glu Substation Wireman ID Calcium 9.1 (8.4-10.2) mg/dL Total Bilirubin 1.0 (0.2-1.3) mg/dL AST 51 H (14-36) U/L ALT 29 (4-34) U/L Alkaline Phosphatase 57 (38-126) U/L Creatine Kinase 67 (30-135) U/L Troponin I (0.000-0.034) ng/mL Total Protein 8.1 (6.3-8.2) g/dL Albumin 4.7 (3.5-5.0) g/dL 07/13/22 07/13/22 Range/Units 23:23 23:31 WBC (3.8-10.6) k/uL RBC (3.80-5.40) m/uL Hgb (11.4-16.0) gm/dL Hct (34.0-46.0) % MCV (80.0-100.0) fL MCH (25.0-35.0) pg MCHC (31.0-37.0) g/dL RDW (11.5-15.5) % Plt Count (150-450) k/uL MPV Neutrophils % % Lymphocytes % % Monocytes % % Eosinophils % % Basophils % % Neutrophils # (1.3-7.7) k/uL Lymphocytes # (1.0-4.8) k/uL Monocytes # (0-1.0) k/uL Eosinophils # (0-0.7) k/uL Basophils # (0-0.2) k/uL PT (9.0-12.0) sec INR (<1.2) APTT (22.0-30.0) sec Sodium (137-145) mmol/L Potassium (3.5-5.1) mmol/L Chloride (98-107) mmol/L Carbon Dioxide (22-30) mmol/L Anion Gap mmol/L BUN (7-17) mg/dL Creatinine (0.52-1.04) mg/dL Est GFR (CKD-EPI)AfAm (>60 ml/min/1.73 sqM) Est GFR (CKD-EPI)NonAf (>60 ml/min/1.73 sqM) Glucose (74-99) mg/dL POC Glucose (mg/dL) 116 H (70-110) mg/dL POC Glu Substation Wireman ID Rhonda Espino Calcium (8.4-10.2) mg/dL Total Bilirubin (0.2-1.3) mg/dL AST (14-36) U/L ALT (4-34) U/L Alkaline Phosphatase (38-126) U/L Creatine Kinase (30-135) U/L Troponin I 0.031 (0.000-0.034) ng/mL Total Protein (6.3-8.2) g/dL Albumin (3.5-5.0) g/dL Critical Care Time Critical Care Time: Yes Total Critical Care Time: 77 Disposition Clinical Impression: Cerebrovascular accident (CVA) Disposition: ADMITTED IP TO THIS HOSP Condition: Critical Referrals: Manuel Kong MD [Primary Care Provider] - 1-2 days Decision Time: 01:00
[2022-07-13 23:34] LABS: Glucose,Whole Blood 116 mg/dL (70-110)
--- NOTE | 2022-07-13 23:37 | CT ---
EXAMINATION TYPE: CT brain wo con for TPA CT DLP: 1139.4 mGycm, Automated exposure control for dose reduction was used. DATE OF EXAM: 07/13/2022 11:33 PM COMPARISON: PET CT 01/15/2021, CT brain 09/15/2016. CLINICAL INDICATION:Female, 52 years old with history of Neuro deficit, acute, stroke suspected, code stroke TECHNIQUE: Brain: Axial CT images of the brain were obtained with coronal and sagittal reformats created and rev iewed. Contrast used: None. Oral contrast used: None. FINDINGS: Brain: Extra-axial spaces: No abnormal extra-axial fluid collections. Ventricular system: Within normal limits Cerebral parenchyma: No acute intraparenchymal hemorrhage or mass effect. The norris-white junction is well differentiated. Cerebellum: Unremarkable. Mass effect: No evidence of midline shift. Intracranial vasculature: unremarkable Soft tissues: Normal. Calvarium/osseous structures: No depressed skull fracture. Paranasal sinuses and mastoid air cells: Mild scattered paranasal sinus disease. Visualized orbits: Orbital contents are intact. IMPRESSION: No acute intracranial process.
--- NOTE | 2022-07-13 23:46 | CT ---
EXAMINATION TYPE: CT angio head neck CT DLP: 477.5 mGycm, Automated exposure control for dose reduction was used. DATE OF EXAM: 07/13/2022 11:39 PM COMPARISON: 09/15/2016. CLINICAL INDICATION:Female, 52 years old with history of Neuro deficit, acute, stroke suspected, code stroke TECHNIQUE: Axially acquired helical CT angiogram of the head and neck was obtained with contrast. Axi al images are supplemented with 3D reconstructions which [facility] NASCET criteria used. Contrast used:65 mL of Isovue 370 with IV Contrast, Oral contrast used: None. FINDINGS: CTA HEAD: No evidence of acute intracranial hemorrhage, mass effect, or midline shift. The ventricles, sulci, a nd cisterns are unremarkable. The visualized portions of the internal carotid arteries, middle cerebral arteries, anterior cerebral arteries, and posterior cerebral arteries are patent. The basilar and vertebral arteries are patent. CTA NECK: Right Carotid System: The common carotid artery and external carotid artery are patent. The carotid bifurcation demonstrate s no evidence of hemodynamically significant stenosis. The remaining portions of the internal carotid artery demonstrate normal size without significant narrowing. Left Carotid System: The common carotid artery and external carotid artery are patent. The carotid bifurcation demonstrate s no evidence of hemodynamically significant stenosis. The remaining portions of the internal carotid artery demonstrate normal size without significant narrowing. Vertebral arteries are patent without evidence hemodynamically significant stenosis. There is a three-vessel aortic arch. The origins of the great vessels are patent. No evidence of hemo dynamically significant stenosis. Upper thorax: IMPRESSION: 1. No evidence of dissection of the cervical internal carotid arteries or vertebral arteries or any e vidence of significant stenosis at the carotid bifurcations. 2. No evidence of intracranial high-grade stenosis or intracranial aneurysm.
[2022-07-13 23:48] LABS: Basophils # (A) 0.1 k/uL (0-0.2); Basophils % (A) 1 %; Eosinophils # (A) 0.2 k/uL (0-0.7); Eosinophils % (A) 2 %; HCT 35.5 % (34.0-46.0); HGB 12.2 gm/dL (11.4-16.0); Lymphocytes # (A) 2.2 k/uL (1.0-4.8); Lymphocytes % (A) 30 %; MCH 30.5 pg (25.0-35.0); MCHC 34.4 g/dL (31.0-37.0); MCV 88.7 fL (80.0-100.0); Monocytes # (A) 0.4 k/uL (0-1.0); Monocytes % (A) 5 %; Neutrophils # (A) 4.2 k/uL (1.3-7.7); Neutrophils % (A) 58 %; Platelet Count 306 k/uL (150-450); RDW 12.4 % (11.5-15.5); WBC 7.2 k/uL (3.8-10.6)
[2022-07-14] MEDS ORDERED: SODIUM CHLORIDE 0.9% 50 ML MINI-BAG IV ONE ×3 (00:22→02:49)
[2022-07-14 00:32] LABS: ALT 29 U/L (4-34); AST 51 U/L (14-36); African American GFR (CKD) >90 (>60 ml/min/1.73 sqM); Albumin 4.7 g/dL (3.5-5.0); Alkaline Phosphatase 57 U/L (38-126); Anion Gap 12 mmol/L; Blood Urea Nitrogen 10 mg/dL (7-17); Calcium 9.1 mg/dL (8.4-10.2); Carbon Dioxide 21 mmol/L (22-30); Chloride 96 mmol/L (98-107); Creatine Kinase 67 U/L (30-135); Glucose 106 mg/dL (74-99); Non-African American GFR(CKD) >90 (>60 ml/min/1.73 sqM); Sodium 129 mmol/L (137-145); Total Protein 8.1 g/dL (6.3-8.2)
[2022-07-14] MEDS ORDERED: ONDANSETRON 4 MG/2 ML VIAL IVP STA (00:34)
[2022-07-14 00:38] LABS: Potassium 5.7 mmol/L (3.5-5.1)
[2022-07-14 00:53] LABS: INR 0.9 (<1.2); Prothrombin Time 10.1 sec (9.0-12.0)
[2022-07-14 00:54] LABS: Partial Thromboplastin Time 25.5 sec (22.0-30.0)
--- NOTE | 2022-07-14 01:41 | XR ---
EXAM: XR Chest, 2 Views CLINICAL HISTORY: ITS.REASON XR Reason: altered mental status TECHNIQUE: Frontal and lateral views of the chest. COMPARISON: 01/07/21 FINDINGS: Lungs: Unremarkable. No consolidation. Pleural space: Unremarkable. No pleural effusion or pneumothorax. Heart: Unremarkable. No cardiomegaly or pulmonary vascular congestion. Bones/joints: No acute fracture. No dislocation. IMPRESSION: No evidence of acute cardiopulmonary disease.
[2022-07-14] MEDS ORDERED: ASPIRIN 325 MG TAB PO STA (01:47)
[2022-07-14] MEDS ORDERED: SODIUM CHLORIDE 0.9% 1,000 ML IV STA (01:52)
[2022-07-14 04:01] LABS: Glucose,Whole Blood 96 mg/dL (70-110)
--- NOTE | 2022-07-14 05:05 | P.HPIM ---
History of Present Illness H&P Date: 07/14/22 Chief Complaint: slurred speech 52 year old female with hypertension , h/o stroke TIA patient coming in for sudden onset slurred speech while talking to her last night, she recognized possibly having a stroke called 911 and was brought to the hospital , no other focal neuro deficits. CT brain and CT angio head and neck unremarkable patient not on blood thinners. she takes aspirin and metoprolol at home. patient deemed to be a candidate for tpa , which was given successfully , she tolerated well, and now her symptoms have completely resolved. she does report some headache for the past couple days, otherwise , no bleeding, no abd pain no chest pain , no trouble breathing, no head injury , no cough , no sob no fever no chills. she quit smoking 2 years ago ,denies drugs or alcohol Review of Systems Pertinent positives as noted in HPI. All other systems were reviewed and are negative Past Medical History Past Medical History: CVA/TIA, GERD/Reflux, Hypertension, Sleep Apnea/CPAP/BIPAP Additional Past Medical History / Comment(s): Hx difficulty with speech/received TPA with resolvement of speech problem(2016), was told later she did not have a stroke. Hx Toxemia with . Abdominal pain, PCOS. "Touch of Sleep Apnea", no CPAP use. History of Any Multi-Drug Resistant Organisms: None Reported Past Surgical History: Section, Ear Surgery, Tubal Ligation Additional Past Surgical History / Comment(s): MAURO, cystoscopy, left ganglion cyst removed, hysteroscopy-unable to do ablation because bladder adhered to uterus, D&C, bilateral myringotomy/tubes. Past Anesthesia/Blood Transfusion Reactions: No Reported Reaction Past Psychological History: Anxiety, Depression Additional Psychological History / Comment(s): Clausterphobia. Smoking Status: Former smoker Past Alcohol Use History: Heavy Additional Past Alcohol Use History / Comment(s): Started smoking in 1987, quit in 2016, resumed smoking in 2018 and quit again 11/27/2020, was a 1ppd smoker. Drinks 6 beers 4-5 days per week. Past Drug Use History: None Reported - Past Family History Father Family Medical History: COPD, Hyperlipidemia, Hypertension Mother Family Medical History: Coronary Artery Disease (CAD), Diabetes Mellitus, Hyperlipidemia, Hypertension Additional Family Medical History / Comment(s): Mother had CABG at the age of 52 yrs. Medications and Allergies Home Medications Medication Instructions Recorded Confirmed Type Spironolactone 50 mg PO DAILY 09/15/16 07/27/21 History Aspirin 81 mg PO DAILY 02/28/17 07/27/21 History Metoprolol Succinate (ER) [Toprol 25 mg PO QAM 07/22/21 07/27/21 History Xl] Omeprazole [PriLOSEC] 40 mg PO DAILY 07/22/21 07/27/21 History Sertraline HCl [Zoloft] 50 mg PO DAILY 07/22/21 07/27/21 History Trazodone (Unknown Dose) 1 tab PO HS PRN 07/22/21 07/27/21 History Allergies Allergy/AdvReac Type Severity Reaction Status Date / Time No Known Allergies Allergy Verified 07/13/22 23:23 Physical Exam Vitals: Vital Signs Temp Pulse Pulse Resp BP BP Pulse Ox 07/14/22 03:07 78 16 127/91 99 07/14/22 02:07 70 16 98 07/14/22 01:07 85 16 97 07/14/22 00:37 78 16 133/93 98 07/14/22 00:23 75 16 122/91 99 07/14/22 00:21 75 16 122/91 98 07/14/22 00:07 86 16 99 07/14/22 00:06 86 16 140/96 99 07/13/22 23:52 83 14 157/98 98 07/13/22 23:51 79 14 157/98 97 07/13/22 23:37 86 16 166/125 99 07/13/22 23:36 97.7 F 87 85 18 166/125 165/108 98 Intake and Output 07/13/22 07/13/22 07/14/22 14:59 22:59 06:59 Other: Weight 69.2 kg Constitutional: No acute distress, conversant, pleasant Eyes: Anicteric sclerae, moist conjunctiva, Pupils equal round reactive to light ENMT: NC/AT Oropharynx clear, no erythema, or exudates Neck: Supple, no masses, or JVD No carotid bruits No thyromegaly Lungs: Clear to auscultation Clear to percussion Normal respiratory effort, no accessory muscle use Cardiovascular: Heart regular in rate and rhythm, No murmurs, gallops, or rubs No peripheral edema Abdominal: Soft Nontender, no guarding, rebound or rigidity Abdomen moving with respiration Normoactive bowel sounds No hepatomegaly, No splenomegaly No palpable mass No abdominal wall hernia noted Skin: Normal temperature, tone, texture, turgor No induration No subcutaneous nodules No rash, lesions No ulcers Extremities: No digital cyanosis No clubbing Pedal pulses intact and symmetrical Radial pulses intact and symmetrical No calf tenderness Psychiatric: Alert and oriented to person, place and time Appropriate affect fair judgement Neuro Muscles Strength 5/5 in all 4 extremities Sensation to light touch grossly present throughout Cranial nerves II-XII grossly intact Lymphatics: no palpable cervical or supraclavicular lymph nodes Results CBC & Chem 7: 07/13/22 23:23 04 23:23 Labs: Abnormal Lab Results - Last 24 Hours (Table) 07/13/22 07/13/22 Range/Units 23:23 23:31 Sodium 129 L (137-145) mmol/L Potassium 5.7 H (3.5-5.1) mmol/L Chloride 96 L (98-107) mmol/L Carbon Dioxide 21 L (22-30) mmol/L Glucose 106 H (74-99) mg/dL POC Glucose (mg/dL) 116 H (70-110) mg/dL AST 51 H (14-36) U/L Thrombosis Risk Factor Assmnt - Choose All That Apply Each Factor Represents 1 point: Age 41-60 years, Medical pt on bed rest Each Risk Factor Represents 5 Points: Stroke (< 1 month) Thrombosis Risk Factor Assessment Total Risk Factor Score: 7 Thrombosis Risk Factor Assessment Level: High Risk Assessment and Plan Assessment: 52 year old female with hypertension , history of stroke and TIA , presented with slurred speech, i discussed the case with ED doc, patient will be admitted tot ICU for stroke management and tpa. I accepted the admission for close monitoring int ICU post tpa . with anticipated length of stay > 2 midnights acute stroke , s/p tpa symptoms resolved monitor blood pressure closely keep < 180 systolic neuro checks ICU care hold aspirin resume BP meds metoprolol and spironolactone home meds PT eval neuro consult echo cardiogram Ct brain and CTA head and neck no acute pathology check lipid panel initiate lipitor [address] brain 11 pm on july 14 hypertension controlled resume metoprolol and aldactone GERD , resume PPI full code DVT PPX mechanical due to post tpa
--- NOTE | 2022-07-14 06:03 | P.CNPUL ---
History of Present Illness Consult date: 07/14/22 Requesting physician: Rafa Guadalupe Reason for consult: other (ICU management) Chief complaint: Dysphasia and headache History of present illness: I'm seeing this patient in new consultation today 07/14/2022 for ICU management. This is a pleasant 52-year-old white female with past medical history significant for hypertension, febrile seizures as a child, polycystic ovarian syndrome, and remote history of smoking. Patient presented yesterday evening with symptoms of dysphasia. Apparently, she received a call from her and could not express her thoughts verbally. She was able to text message her who told her to call EMS. The symptoms started around 9:30 last night. She also had an associated headache. Patient arrived to the ER around 11:00 that night. Patient was treated with TPA. Patient's brain CT and CT angiogram of the brain were both negative for any acute intracranial process. Patient does report a previous episode like this happening where she was unable to speak. Patient was thought to have a TIA versus migraine at that time, and patient never followed up with neurology. Patient is currently resting in bed, on room air, in no acute distress. Her neurological function appears back to baseline. Her NIH is currently 0. Neurology is on the case. No overt signs of bleeding. Patient's CBC on arrival was essentially normal. Patient's BMP shows sodium 129, potassium 5.7, chloride 96, serum CO2 21, BUN 10, creatinine 0.59, local is 106. Troponins negative 1. Vital signs are stable. Review of Systems REVIEW OF SYSTEMS: CONSTITUTIONAL: Denies any recent significant weight loss or weight gain. EYES: Denies change in vision. EARS, NOSE, MOUTH, THROAT: Denies headaches, denies sore throat. CARDIOVASCULAR: Denies chest pain, palpitations or syncopal episodes. RESPIRATORY: Denies shortness of breath, cough, congestion or hemoptysis. GASTROINTESTINAL: Denies change in appetite, abdominal pain, nausea and vomiting, or diarrhea GENITOURINARY: Denies hematuria, denies infections. MUSKULOSKELETAL: Denies pain, denies swelling. INTEGUMENTARY: Denies rash, denies eczema. NEUROLOGICAL: Denies recent memory loss, no recent seizure activity. PSYCHIATRIC: Denies anxiety, denies depression. HEMATOLOGIC/LYMPHATIC: Denies anemia, denies enlarged lymph node Past Medical History Past Medical History: CVA/TIA, GERD/Reflux, Hypertension, Sleep Apnea/CPAP/BIPAP Additional Past Medical History / Comment(s): Hx difficulty with speech/received TPA with resolvement of speech problem(2017), was told later she did not have a stroke. Hx Toxemia with . Abdominal pain, PCOS. "Touch of Sleep Apnea", no CPAP use. History of Any Multi-Drug Resistant Organisms: None Reported Past Surgical History: Section, Ear Surgery, Tubal Ligation Additional Past Surgical History / Comment(s): MAURO, cystoscopy, left ganglion cyst removed, hysteroscopy-unable to do ablation because bladder adhered to uterus, D&C, bilateral myringotomy/tubes. Past Anesthesia/Blood Transfusion Reactions: No Reported Reaction Past Psychological History: Anxiety, Depression Additional Psychological History / Comment(s): Clausterphobia. Smoking Status: Former smoker Past Alcohol Use History: Heavy Additional Past Alcohol Use History / Comment(s): Started smoking in 1987, quit in 2016, resumed smoking in 2018 and quit again 11/27/2020, was a 1ppd smoker. Drinks 6 beers 4-5 days per week. Past Drug Use History: None Reported - Past Family History Father Family Medical History: COPD, Hyperlipidemia, Hypertension Mother Family Medical History: Coronary Artery Disease (CAD), Diabetes Mellitus, Hyperlipidemia, Hypertension Additional Family Medical History / Comment(s): Mother had CABG at the age of 52 yrs. Medications and Allergies Home Medications Medication Instructions Recorded Confirmed Type Spironolactone 50 mg PO DAILY 09/15/16 07/27/21 History Aspirin 81 mg PO DAILY 02/28/17 07/27/21 History Metoprolol Succinate (ER) [Toprol 25 mg PO QAM 07/22/21 07/27/21 History Xl] Omeprazole [PriLOSEC] 40 mg PO DAILY 07/22/21 07/27/21 History Sertraline HCl [Zoloft] 50 mg PO DAILY 07/22/21 07/27/21 History Trazodone (Unknown Dose) 1 tab PO HS PRN 07/22/21 07/27/21 History Allergies Allergy/AdvReac Type Severity Reaction Status Date / Time No Known Allergies Allergy Verified 07/13/22 23:23 Physical Exam Vitals: Vital Signs Temp Pulse Pulse Resp BP BP Pulse Ox 07/14/22 05:00 83 14 126/96 94 L 07/14/22 04:50 75 28 H 126/96 95 07/14/22 04:40 70 6 L 126/96 95 07/14/22 04:30 71 12 126/96 95 07/14/22 04:20 68 18 126/96 94 L 07/14/22 04:10 25 H 140/93 07/14/22 04:00 98.1 F 81 18 127/91 97 07/14/22 03:50 69 3 L 127/91 07/14/22 03:40 72 13 127/91 96 07/14/22 03:30 75 15 127/91 07/14/22 03:20 76 15 127/91 07/14/22 03:10 80 13 127/91 07/14/22 03:07 78 16 127/91 99 07/14/22 03:00 73 25 H 07/14/22 02:50 72 18 07/14/22 02:40 74 18 07/14/22 02:30 90 38 H 07/14/22 02:20 74 12 07/14/22 02:10 74 16 07/14/22 02:07 70 16 98 07/14/22 02:00 92 24 112/81 07/14/22 01:50 80 16 112/81 97 07/14/22 01:40 79 18 114/85 96 07/14/22 01:30 78 19 114/84 96 07/14/22 01:20 81 16 122/88 95 07/14/22 01:10 82 15 97 07/14/22 01:07 85 16 97 07/14/22 01:00 114/85 07/14/22 00:50 85 27 H 133/93 93 L 07/14/22 00:40 96 23 145/101 97 07/14/22 00:37 78 16 133/93 98 07/14/22 00:30 81 19 122/91 95 07/14/22 00:23 75 16 122/91 99 07/14/22 00:21 75 16 122/91 98 07/14/22 00:20 80 6 L 139/106 97 07/14/22 00:10 82 16 140/96 97 07/14/22 00:07 86 16 99 07/14/22 00:06 86 16 140/96 99 07/14/22 00:00 78 13 157/98 96 07/13/22 23:52 83 14 157/98 98 07/13/22 23:51 79 14 157/98 97 07/13/22 23:50 82 14 166/125 97 07/13/22 23:40 84 16 165/108 98 07/13/22 23:37 86 16 166/125 99 07/13/22 23:36 97.7 F 87 85 18 166/125 165/108 98 07/13/22 23:32 99 Intake and Output 07/13/22 07/13/22 07/14/22 14:59 22:59 06:59 Intake Total 220 Balance 220 Intake: Oral 220 Other: # Voids 0 Weight 69.2 kg GENERAL EXAM: Alert, 52-year-old white female, comfortable in no apparent distress. HEAD: Normocephalic and atraumatic EYES: Normal reaction of pupils, equal size. NOSE: Clear with pink turbinates. THROAT: No erythema or exudates. NECK: No masses, no JVD. CHEST: No chest wall deformity. LUNGS: Equal air entry with no crackles, wheeze, rhonchi or dullness. No conversational dyspnea or accessory muscle use.. CVS: S1 and S2 normal with no audible murmur, regular rhythm. No extra heart sounds ABDOMEN: No hepatosplenomegaly, active bowel sounds, no guarding or rigidity. SPINE: No scoliosis or deformity SKIN: No rashes CENTRAL NERVOUS SYSTEM: No focal deficits, tone is normal in all 4 extremities. NIH 0 EXTREMITIES: There is no peripheral edema, clubbing, or cyanosis. Peripheral pulses are intact. Results - Laboratory Findings CBC and BMP: 07/13/22 23:23 07/13/22 23:23 PT/INR, D-dimer PT 10.1 sec (9.0-12.0) 07/13/22 23:23 INR 0.9 (<1.2) 07/13/22 23:23 Abnormal lab findings: Abnormal Labs 07/13/22 04 23:23 23:31 Sodium 129 L Potassium 5.7 H Chloride 96 L Carbon Dioxide 21 L Glucose 106 H POC Glucose (mg/dL) 116 H AST 51 H - Diagnostic Findings Chest x-ray: image reviewed Assessment and Plan Assessment: Dysphasia possibly related to acute CVA treated with TPA. Patient's brain CT and CTA angiogram of the brain showed no acute intracranial process. Neurological function is back to baseline. Patient has had similar episode of dysphasia in the past. Patient reports that the neurologist at that time thought it to be a TIA versus migraine. Patient did not follow-up with neurologist. Hypertension GERD Polycystic ovarian syndrome History of febrile seizures as a child Remote history of smoking Plan: Patient's medication, labs, chest x-ray were reviewed Neurological function is back to baseline, and NIH is currently 0 No signs of bleeding post TPA Neuro checks per protocol continue to closely monitor the patient in the intensive care unit for signs of neurologic deterioration or bleeding Neurology is on the case Echocardiogram is pending Repeat CT of the brain scheduled tonight at 2300 GI prophylaxis with Protonix We will continue to follow while in ICU I have personally seen and examined the patient, performed the documentation and the assessment and plan as written. Number of minutes spent on the visit:20 Time with Patient: Greater than 30
[2022-07-14] MEDS: PANTOPRAZOLE 40 MG TABLET PO SCH (07:14)
[2022-07-14] MEDS: SPIRONOLACTONE 25 MG TAB PO SCH (08:16)
[2022-07-14] MEDS: METOPROLOL SUCCINATE (ER) 25 MG TAB.ER.24H PO SCH (08:16)
--- NOTE | 2022-07-14 10:37 | CA ---
Transthoracic Echo Report Name: Karlee Maza Age: 52 Gender: F : 1970 Exam Date: 07/14/2022 07:59 Exam Location: [place] Echo Ht (in): 66 Wt (lb): 152 Ordering Physician: Beau Ordaz MD Attending/Referring Phys: [id number], Orlin [employer]eller Daylin Dan, [facility] Procedure CPT: Indications: stroke Cardiac Hx: Technical Quality: Good Contrast 1: Total Dose (mL): Contrast 2: Total Dose (mL): MEASUREMENTS (Male / Female) Normal Values 2D ECHO LV Diastolic Diameter PLAX 4.4 cm 4.2 - 5.9 / 3.9 - 5.3 cm LV Systolic Diameter PLAX 2.8 cm IVS Diastolic Thickness 1.1 cm 0.6 - 1.0 / 0.6 - 0.9 cm LVPW Diastolic Thickness 1.1 cm 0.6 - 1.0 / 0.6 - 0.9 cm LV Relative Wall Thickness 0.5 RV Internal Dim ED PLAX 2.8 cm LA Systolic Diameter LX 3.3 cm 3.0 - 4.0 / 2.7 - 3.8 cm LA Volume 43.8 cm??? 18 - 58 / 22 - 52 cm??? M-MODE Aortic Root Diameter MM 3.2 cm MV E Point Septal Separation 0.3 cm AV Cusp Separation MM 2.0 cm DOPPLER AV Peak Velocity 143.1 cm/s AV Peak Gradient 8.2 mmHg MV Area PHT 3.7 cm??? Mitral E Point Velocity 105.7 cm/s Mitral A Point Velocity 95.0 cm/s Mitral E to A Ratio 1.1 MV Deceleration Time 207.8 ms MV E' Velocity 10.9 cm/s Mitral E to MV E' Ratio 9.7 FINDINGS Left Ventricle Left ventricular ejection fraction is estimated at 55-60 %. Left ventricular cavity size normal. Borderline left ventricular hypertrophy. Right Ventricle Normal right ventricular size and function. No TR unable to estimate the right ventricular systolic pressure. Right Atrium Normal right atrial size. Left Atrium Normal left atrial size. Mitral Valve Structurally normal mitral valve. Trace mitral regurgitation. Aortic Valve Trileaflet aortic valve. No aortic valve stenosis or regurgitation. Tricuspid Valve Structurally normal tricuspid valve. No tricuspid stenosis, regurgitation or prolapse. Pulmonic Valve Structurally normal pulmonic valve. No pulmonic regurgitation. Pericardium Normal pericardium. No pericardial effusion. Aorta Normal size aortic root and proximal ascending aorta. CONCLUSIONS Normal LV size and systolic function. No significant abnormality on the Doppler exam. No pericardial effusion Previewed by: Dr. Zoila Hankins MD (Electronically Signed) Final Date: 14 July 2022 10:36
--- NOTE | 2022-07-14 16:50 | P.CNNES ---
History of Present Illness Consult date: 07/14/22 Requesting physician: Rafa Guadalupe Reason for Consult: CVA History of Present Illness: Patient is a 52-year-old right-handed female came to the hospital by ambulance yesterday at 11:19 PM for possible stroke symptoms. Patient states that for one week she has been having intermittent headache pointing to the left temporal region, would come and go. It is a nagging headache 5/10 with some sharp component 8/10. The sharp component would last for a brief moment there is the nagging headache was also intermittent, come and go, and does not last too long. No other vascular features. Yesterday at 9:30 PM, she was trying to talk and suddenly could not make sense, the words were not coming out right, and the wor ds were all gibberish. There was no associated facial droop, numbness or tingling any visual disturbance or nausea vomiting. Patient's family called EMS and patient was brought to the hospital. Patient still has symptoms when she arrived. Patient was given TPA, and during TPA, symptoms completely resolved. The headache also resolved. At present she has no symptoms. EMS flow sheet not available in the chart. Patient's vitals on arrival blood pressure 165/108, temperature 97.7, pulse rate 85 and respirations 18. Blood test shows normal CBC, PT/PTT, sodium 129 potassium 5.7, normal renal functions. Hepatic panel with AST mildly elevated 51, ALT is normal 29. Troponin, CK normal. CT head revealed no acute process. I personally reviewed CT head, agree with the findings. Visualized paranasal sinuses are clear. CTA of head and neck are normal. Chest x-ray normal, EKG with normal sinus rhythm. Her home medications include aspirin 81 mg, metoprolol 25 mg, sertraline 50 mg, omeprazole 40 mg, trazodone 50 mg and Aldactone 50 mg. Patient states that on 09/15/2016, she presented with similar symptoms with speech difficulty without any other deficits. Patient received TPA at that time and the symptoms resolved by the time TPA was completed. She was transferred to [facility] where she stayed for a day or so, underwent MRI of the brain which was normal. She was discharged on aspirin. Patient states that she subsequently had a MAURO performed outpatient, which was also reportedly normal. Patient denies any history of migraines. Patient denies any family history of strokes although does have history of heart disease. Patient has hypertension which is controlled, denies diabetes. She has smoked 1 pack per day from age 17 until she quit 2 years ago at age 50. During these 33 years, she had 2 years in between, in which she had quit smoking (overall 31 pack years, quit 2 years ago and (. Patient drinks alcohol 7-8 beers every day for last few years. She denies any history of migraines although sometimes gets headache which she carola mes it on sinuses. Her nephew does suffer from migraines. Patient does have some nodules on the lung for which she follows up with Dr. Escamilla. Patient also has PCOS. Patient states she has history of febrile convulsion only once when she was age 23 years old. It happened only once, never happened again. At present patient has no symptoms. Review of Systems Constitutional: Denies chills, Denies fever Eyes: denies blurred vision, denies pain Ears: deny: decreased hearing, ear discharge, earache Ears, nose, mouth and throat: Reports headache, Denies sore throat Cardiovascular: Denies chest pain, Denies shortness of breath Respiratory: Denies cough, Denies excessive sputum Gastrointestinal: Denies abdominal pain, Denies diarrhea, Denies nausea, Denies vomiting Genitourinary: Denies dysuria, Denies hematuria Musculoskeletal: Denies frequent falls, Denies myalgias Integumentary: Denies pruritus, Denies rash Neurological: Reports as per HPI Psychiatric: Denies anxiety, Denies depression Endocrine: Denies fatigue, Denies weight change Past Medical History Past Medical History: CVA/TIA, GERD/Reflux, Hypertension, Sleep Apnea/CPAP/BIPAP Additional Past Medical History / Comment(s): Hx difficulty with speech/received TPA with resolvement of speech problem(2017), was told later she did not have a stroke. Hx Toxemia with . Abdominal pain, PCOS. "Touch of Sleep Apnea", no CPAP use. History of Any Multi-Drug Resistant Organisms: None Reported Past Surgical History: Section, Ear Surgery, Tubal Ligation Additional Past Surgical History / Comment(s): MAURO, cystoscopy, left ganglion cyst removed, hysteroscopy-unable to do ablation because bladder adhered to uterus, D&C, bilateral myringotomy/tubes. Past Anesthesia/Blood Transfusion Reactions: No Reported Reaction Past Psychological History: Anxiety, Depression Additional Psychological History / Comment(s): Clausterphobia. Smoking Status: Former smoker Past Alcohol Use History: Heavy Additional Past Alcohol Use History / Comment(s): Started smoking in 1987, quit in 2016, resumed smoking in 2018 and quit again 11/27/2020, was a 1ppd smoker. Drinks 6 beers 4-5 days per week. Past Drug Use History: None Reported - Past Family History Father Family Medical History: COPD, Hyperlipidemia, Hypertension Mother Family Medical History: Coronary Artery Disease (CAD), Diabetes Mellitus, Hyperlipidemia, Hypertension Additional Family Medical History / Comment(s): Mother had CABG at the age of 52 yrs. Medications and Allergies Home Medications Medication Instructions Recorded Confirmed Type Aspirin 81 mg PO DAILY 02/28/17 07/14/22 History Metoprolol Succinate (ER) [Toprol 25 mg PO DAILY 07/22/21 07/14/22 History Xl] Omeprazole [PriLOSEC] 40 mg PO DAILY 07/22/21 07/14/22 History Sertraline HCl [Zoloft] 50 mg PO DAILY 07/22/21 07/14/22 History Spironolactone [Aldactone] 50 mg PO DAILY 07/14/22 07/14/22 History traZODone HCL [Desyrel] 50 mg PO HS PRN 07/14/22 07/14/22 History Allergies Allergy/AdvReac Type Severity Reaction Status Date / Time No Known Allergies Allergy Verified 07/14/22 06:56 Physical Examination - Vital Signs Vital Signs: Vital Signs Temp Pulse Pulse Resp BP BP Pulse Ox 07/14/22 13:00 75 17 96 07/14/22 12:00 98.3 F 94 25 H 128/90 97 07/14/22 11:00 93 23 135/81 95 07/14/22 10:00 73 21 119/81 94 L 07/14/22 09:00 80 12 110/64 95 07/14/22 08:00 98.1 F 89 13 151/93 97 07/14/22 07:00 100 31 H 121/79 07/14/22 06:50 68 12 121/79 07/14/22 06:40 76 19 121/79 07/14/22 06:30 68 15 121/79 07/14/22 06:20 72 22 121/79 95 04/06/23 06:10 121/79 07/14/22 06:00 67 13 127/88 94 L 07/14/22 05:50 72 14 127/88 93 L 07/14/22 05:40 76 13 127/88 92 L 07/14/22 05:30 78 14 127/88 92 L 07/14/22 05:20 74 13 127/88 94 L 07/14/22 05:10 86 27 H 127/88 95 07/14/22 05:00 83 14 126/96 94 L 07/14/22 04:50 75 28 H 126/96 95 07/14/22 04:40 70 6 L 126/96 95 07/14/22 04:30 71 12 126/96 95 07/14/22 04:20 68 18 126/96 94 L 07/14/22 04:10 25 H 140/93 07/14/22 04:00 98.1 F 81 18 127/91 97 07/14/22 03:50 69 3 L 127/91 07/14/22 03:40 72 13 127/91 96 07/14/22 03:30 75 15 127/91 07/14/22 03:20 76 15 127/91 07/14/22 03:10 80 13 127/91 07/14/22 03:07 78 16 127/91 99 07/14/22 03:00 73 25 H 07/14/22 02:50 72 18 07/14/22 02:40 74 18 07/14/22 02:30 90 38 H 07/14/22 02:20 74 12 07/14/22 02:10 74 16 07/14/22 02:07 70 16 98 07/14/22 02:00 92 24 112/81 07/14/22 01:50 80 16 112/81 97 07/14/22 01:40 79 18 114/85 96 07/14/22 01:30 78 19 114/84 96 07/14/22 01:20 81 16 122/88 95 07/14/22 01:10 82 15 97 07/14/22 01:07 85 16 97 07/14/22 01:00 114/85 07/14/22 00:50 85 27 H 133/93 93 L 07/14/22 00:40 96 23 145/101 97 07/14/22 00:37 78 16 133/93 98 07/14/22 00:30 81 19 122/91 95 07/14/22 00:23 75 16 122/91 99 07/14/22 00:21 75 16 122/91 98 07/14/22 00:20 80 6 L 139/106 97 07/14/22 00:10 82 16 140/96 97 07/14/22 00:07 86 16 99 07/14/22 00:06 86 16 140/96 99 07/14/22 00:00 78 13 157/98 96 07/13/22 23:52 83 14 157/98 98 07/13/22 23:51 79 14 157/98 97 07/13/22 23:50 82 14 166/125 97 07/13/22 23:40 84 16 165/108 98 07/13/22 23:37 86 16 166/125 99 07/13/22 23:36 97.7 F 87 85 18 166/125 165/108 98 07/13/22 23:32 99 Intake and Output 07/13/22 07/14/22 07/14/22 22:59 06:59 14:59 Intake Total 220 Balance 220 Intake: Oral 220 Other: # Voids 1 1 Weight 69.2 kg Patient is a middle aged female, in no acute distress. Patient is alert awake oriented to time place and person. Speech and language functions are normal. Patient can name and repeat very well. No aphasia or dysarthria. Attention, concentration and fund of knowledge is adequate. On cranial nerve examination, pupils are equal, round and reacting to light, visual vu are full on confrontation, with no neglect on double simultaneous stimulation. Extraocular muscles are intact with no nystagmus. Face is symmetric, tongue protrudes to the midline. Palatal elevation and sensation normal, hearing and shoulder shrug normal, facial sensation normal. On muscle strength testing, there is no pronator drift and the strength is normal in arms and legs distally and proximally. Deep tendon reflexes are symmetric 1+ at the biceps, 1+ brachioradialis, 2 at the knees, 2 ankles and plantars downgoing bilaterally. Sensory to touch is equal with no neglect on double simultaneous stimulation. Cerebellar function showed no ataxia for [id number] testing. No dysdiadochokinesia. No ataxia for [id number] testing on either side. Tone and bulk of muscles normal. Patient has slight tremors of outstretched hands. Gait deferred.. On general examination, there is no carotid bruit or murmur, S1-S2 audible. Chest is clear on consultation. Abdomen is soft nontender. No organomegaly, bowel sounds present. Peripheral pulses are present. No edema. Results - Laboratory Findings CBC and BMP: 07/13/22 23:23 07/13/22 23:23 Abnormal Lab Findings: Abnormal Labs 07/13/22 07/13/22 23:23 23:31 Sodium 129 L Potassium 5.7 H Chloride 96 L Carbon Dioxide 21 L Glucose 106 H POC Glucose (mg/dL) 116 H AST 51 H Assessment and Plan Assessment: * Probable TIA manifesting with transient expressive aphasia, that resolved in about 1-2 hours. Patient is status post TPA. Her current NIH stroke scale is 0. * History of similar TIA with speech difficulty on 09/15/2016 for which she also received tPA and symptoms resolved in couple hours. * Hypertension * History of febrile convulsion 1 at 3 years age. * Alcoholism * X tobacco use(history of 31 pack years, quit 2 years ago) * History of PCOS. Plan: * Patient's all symptoms have resolved. Patient will undergo 24 hour post-TPA CT head to rule out any bleed. * No antiplatelets, or anticoagulants for 24 hours post-TPA. * 2-D echo: Normal left ventricular size and systolic function with EF 55-60%. Borderline LVH, left atrial size is normal. * Patient states she had a MAURO performed in the past, which was normal. No need to repeat. Patient's family was recommended to obtain the hard copy if possible for our records. * CTA head and neck showed: No evidence of dissection of the cervical ICA or vertebral arteries or any evidence of significant stenosis at the carotid bifurcations. No evidence of intracranial high-grade stenosis or intracranial aneurysm. * Fasting a.m. lipid panel * Hemoglobin A1c * Blood pressure is well controlled. * We will check EEG to rule out any epileptiform activity. * We will have hematology consult to rule out any hypercoagulable state. * Close neuro checks as per protocol. * Telemetry monitoring rule out any arrhythmia. Patient states that she had 7 days of heart rhythm monitoring performed after her previous TIA, which was also normal. * Patient counseled about decreasing alcoholism, as alcoholism is also considered risk factor for stroke/TIA. * Neurology will continue ot follow. Thank you for the consult. Time with Patient: Greater than 30
[2022-07-14] MEDS ORDERED: traZODone HCL 50 MG TAB PO PRN (20:01)
[2022-07-15 04:15] VITALS: TEMP 97.6
[2022-07-15 06:00] LABS: Basophils % (A) 1 %; Eosinophils # (A) 0.1 k/uL (0-0.7); Eosinophils % (A) 2 %; HGB 11.1 gm/dL (11.4-16.0); Lymphocytes # (A) 1.2 k/uL (1.0-4.8); Lymphocytes % (A) 30 %; MCH 29.7 pg (25.0-35.0); MCHC 32.6 g/dL (31.0-37.0); MCV 91.2 fL (80.0-100.0); Mean Platelet Volume 7.6; Monocytes # (A) 0.2 k/uL (0-1.0); Monocytes % (A) 6 %; Neutrophils # (A) 2.3 k/uL (1.3-7.7); Neutrophils % (A) 58 %; Platelet Count 237 k/uL (150-450); RBC 3.72 m/uL (3.80-5.40); RDW 12.4 % (11.5-15.5); WBC 3.9 k/uL (3.8-10.6)
[2022-07-15 06:13] LABS: African American GFR (CKD) >90 (>60 ml/min/1.73 sqM); Anion Gap 7 mmol/L; Blood Urea Nitrogen 15 mg/dL (7-17); Calcium 9.9 mg/dL (8.4-10.2); Carbon Dioxide 28 mmol/L (22-30); Chloride 105 mmol/L (98-107); Glucose 100 mg/dL (74-99); Non-African American GFR(CKD) 90 (>60 ml/min/1.73 sqM); Potassium 4.3 mmol/L (3.5-5.1); Sodium 140 mmol/L (137-145)
--- NOTE | 2022-07-15 07:05 | CT ---
EXAMINATION TYPE: CT brain wo con CT DLP: 1202.4 mGycm, Automated exposure control for dose reduction was used. DATE OF EXAM: 07/15/2022 12:26 AM COMPARISON: CT brain 07/13/2022 CLINICAL INDICATION:Female, 52 years old with history of Neuro deficit, acute, stroke suspected, Post TPA TECHNIQUE: Brain: Multiple axial CT images of the brain were obtained without IV contrast. Coronal and sagittal reformats reviewed. FINDINGS: Brain: Extra-axial spaces: No abnormal extra-axial fluid collections. Ventricular system: Within normal limits Cerebral parenchyma: No acute intraparenchymal hemorrhage or mass effect. The norris-white junction is well differentiated. Cerebellum: Unremarkable. Mass effect: No evidence of midline shift. Intracranial vasculature: unremarkable Soft tissues: Normal. Calvarium/osseous structures: No depressed skull fracture. Paranasal sinuses and mastoid air cells: Clear Visualized orbits: Orbital contents are intact. IMPRESSION: No acute intracranial process or significant change from prior.
[2022-07-15] MEDS ORDERED: ASPIRIN 81 MG PO STA (08:37)
[2022-07-15 08:55] LABS: Chol/HDL Ratio 3.06 Ratio; LDL Cholesterol,Calculated 151.2 mg/dL (0.0-131.0)
[2022-07-15] MEDS: SPIRONOLACTONE 25 MG TAB PO SCH (08:55)
[2022-07-15] MEDS: METOPROLOL SUCCINATE (ER) 25 MG TAB.ER.24H PO SCH (08:55)
[2022-07-15] MEDS: PANTOPRAZOLE 40 MG TABLET PO SCH (08:58)
[2022-07-15] MEDS ORDERED: ASPIRIN 325 MG TAB PO SCH (09:00)
--- NOTE | 2022-07-15 10:06 | CDI ---
Documentation Clarification Form Date: 07/15/2022 10:03:06 AM From: Naina Adams RN, CCDS Email: [email or web address] Admit Date: 07/14/2022 1:49:00 AM Patient Name: Karlee Maza Visit Number: [id number] Discharge Date: ATTENTION: The Clinical Documentation Specialists (CDI) and [facility] Coding Staff appreciate your assistance in clarifying documentation. Please respond to the clarification below the line at the bottom and electronically sign. The CDI & [facility] Coding staff will review the response and follow-up if needed. Please note: Queries are made part of the Legal Health Record. If you have any questions, please contact the author of this message via ITS. Dr. Zoey Caballero Your patient had a sodium level of 129 on admission. Please clarify if there is an additional diagnosis and/or clinical significance related to this lab value. History/Risk Factors: HTN, GERD, sleep apnea. Admitted with dysarthria and stroke. Clinical indicators: ED: "Metabolic panel shows hyponatremia 129. Patient given IV fluids to treat hyponatremia." 07/13 Na 129 07/15 Na 140 Treatment: 1L NS IV bolus on 07/13. Is there an additional diagnosis and/or clinical significance related to the above lab result/information? [x] Hyponatremia [ ] Other condition, please specify [ ] Unable to determine MTDD
--- NOTE | 2022-07-15 13:05 | P.PN ---
Subjective Progress Note Date: 07/15/22 Principal diagnosis: Acute CVA treated with TPA I'm seeing this patient in new consultation today 07/14/2022 for ICU management. This is a pleasant 52-year-old white female with past medical history significant for hypertension, febrile seizures as a child, polycystic ovarian s yndrome, and remote history of smoking. Patient presented yesterday evening with symptoms of dysphasia. Apparently, she received a call from her and could not express her thoughts verbally. She was able to text message her who told her to call EMS. The symptoms started around 9:30 last night. She also had an associated headache. Patient arrived to the ER around 11:00 that night. Patient was treated with TPA. Patient's brain CT and CT angiogram of the brain were both negative for any acute intracranial process. Patient does report a previous episode like this happening where she was unable to speak. Patient was thought to have a TIA versus migraine at that time, and patient never followed up with neurology. Patient is currently resting in bed, on room air, in no acute distress. Her neurological function appears back to baseline. Her NIH is currently 0. Neurology is on the case. No overt signs of bleeding. Patient's CBC on arrival was essentially normal. Patient's BMP shows sodium 129, potassium 5.7, chloride 96, serum CO2 21, BUN 10, creatinine 0.59, local is 106. Troponins negative 1. Vital signs are stable. Reevaluated today on 07/15/2022, patient remains in the ICU mostly because of the fact she received TPA for her acute presentation of dysphasia. Doing well, asymptomatic, patient could be considered for discharge home or transfer to a regular medical floor however I'll leave it up to neurology to decide on this patient. From my perspective hour. The patient to be transferred out of the ICU to a regular medical floor. WBC count is 3.9 hemoglobin is 11.1 and a class are normal renal profile is normal patient is doing great Objective - Vital Signs Vital signs: Vital Signs Temp 97.6 F 07/15/22 04:00 Pulse 73 07/15/22 10:30 Resp 19 07/15/22 10:30 BP 132/81 07/15/22 09:30 Pulse Ox 97 07/15/22 08:00 FiO2 Intake & Output 07/14/22 07/15/22 07/15/22 18:59 06:59 18:59 Intake Total 200 200 Balance 200 200 Weight 67.3 kg Intake: Oral 200 200 Other: # Voids 1 1 1 # Bowel Movements 1 1 - Exam Physical Exam: Revealed a 52-year-old female in no distress Head: Atraumatic normocephalic HEENT:[Neck is supple.] [No neck masses.] [No thyromegaly.] [No JVD.] Chest: [Clear throughout, no crackles, no rhonchi, no wheezes.] Cardiac Exam: [Normal S1 and S2, no S3 gallop, no murmur.] Abdomen: [Soft, nontender, no megaly, no rebound, no guarding, normal bowel sounds.] Extremities: [No clubbing, no edema, no cyanosis.] Neurological Exam: [No focal neurologic deficit.] Alert oriented 3 Psychiatric: Normal mood affect and normal mental status examination. Skin: No rash - Labs CBC & Chem 7: 07/15/22 05:19 07/15/22 05:19 Labs: Abnormal Lab Results - Last 24 Hours (Table) 07/15/22 07/15/22 Range/Units 05:19 05:19 RBC 3.72 L (3.80-5.40) m/uL Hgb 11.1 L (11.4-16.0) gm/dL Glucose 100 H (74-99) mg/dL Triglycerides 153.00 H (0.00-149.00) mg/dL Cholesterol 270.00 H (0.00-200.00) mg/dL LDL Cholesterol, Calc 151.2 H (0.0-131.0) mg/dL HDL Cholesterol 88.20 H (40.00-60.00) mg/dL Assessment and Plan Assessment: Impression: Acute CVA presenting mostly with dysphasia, requiring TPA Benign essential hypertension History of polycystic ovarian syndrome Remote history of smoking Recommendation: We'll clear the patient to be transferred out of the ICU Neurologically decide about discharge home and meds related to CVA Will follow as needed Time with Patient: Less than 30
[2022-07-15] MEDS ORDERED: CLOPIDOGREL 75 MG TAB PO SCH (15:30)
[2022-07-15 15:38] VITALS: BP 120/75; PULSE 73; RESP 21
--- NOTE | 2022-07-15 16:07 | P.DS ---
Providers Date of admission: 07/14/22 01:49 Expected date of discharge: 07/15/22 Attending physician: Beau Ordaz MD Consults: 07/14/22 01:48 Consult Physician Routine Consulting Provider: Yoana Nayak Consult Reason/Comments: cva Do you want consulting provider notified?: Yes 07/14/22 05:06 Consult Physician Routine Consulting Provider: Mary Anne Escamilla Consult Reason/Comments: cva, received alteplase Do you want consulting provider notified?: Already Contacted 07/15/22 08:34 Consult Physician Routine Consulting Provider: Jan Salgado Consult Reason/Comments: Recurrent TIA, r/o hypercoagulable state Do you want consulting provider notified?: Yes Primary care physician: Manuel Kong Hospital Course: Acute ischemic stroke Hypertension Hyperlipidemia History of stroke COPD without exacerbation Hospital course: 52-year-old woman with a medical history of hypertension, TIA, COPD, GERD, hyperlipidemia presented with slurred speech and expressive aphasia. In the emergency room, patient was afebrile, 165/108, heart rate 85, 99% on room air. CBC was unremarkable. Chemistries showed hyponatremia to 129, hyperkalemia to 5.7, chloride of 96, bicarb 21, otherwise normal lab. Liver function tests demonstrate mild elevation of AST to 51, otherwise unremarkable. Troponin was 0.031. CK was 67. Ammonia was less than 9. Hemoglobin A1c is 5.6. Lipid panel demonstrated elevated LDL of 152, elevated total cholesterol 270. Coags were unremarkable. Brain CT was negative for acute intracranial process initially. CT angiography showed no evidence of dissection of the cervical internal carotid arteries and vertebral arteries nor did it show any evidence of significant stenosis. EKG demonstrated normal sinus rhythm with no evidence of ischemia. Chest x-ray was negative for acute cardiopulmonary disease. Code stroke was called while patient was in the emergency room, and decision was made to administer TPA. Patient was subsequently admitted to the intensive care unit for monitoring. Patient's symptoms completely resolved after TPA. She had repeat brain CT done 24 hours after TPA administration which was negative for Magic inversion. She had an echocardiogram done which showed normal LV size and systolic function. Patient was seen in consultation with neurology. They recommended dual antiplatelet therapy for a total 21 days followed by aspirin alone. Patient was also started on Lipitor. She'll follow-up with neurology as well as primary care physician. I spent 38 minutes coordinating this discharge on 07/15 Gen: awake, alert HEENT: normocephalic, atraumatic, good hearing acuity, moist mucous membranes Resp: good air exchange, breathing comfortably with no accessory muscle use CVS: good distal perfusion x 4, GI: soft, NTTP, ND : no SPT, no CVAT, snider catheter not present MSK: no pitting edema, no clubbing Neuro: non-focal, moving all extremities Psych: cooperative, euthymic mood Patient Condition at Discharge: Good Plan - Discharge Summary New Discharge Prescriptions: New Atorvastatin [Lipitor] 40 mg PO HS #30 tab Clopidogrel [Plavix] 75 mg PO DAILY #30 tab Continue Aspirin 81 mg PO DAILY Omeprazole [PriLOSEC] 40 mg PO DAILY Metoprolol Succinate (ER) [Toprol XL] 25 mg PO DAILY Sertraline HCl [Zoloft] 50 mg PO DAILY traZODone HCL [Desyrel] 50 mg PO HS PRN PRN Reason: Insomnia Spironolactone [Aldactone] 50 mg PO DAILY Discharge Medication List Aspirin 81 mg PO DAILY 02/28/17 [History] Metoprolol Succinate (ER) [Toprol XL] 25 mg PO DAILY 07/22/21 [History] Omeprazole [PriLOSEC] 40 mg PO DAILY 07/22/21 [History] Sertraline HCl [Zoloft] 50 mg PO DAILY 07/22/21 [History] Spironolactone [Aldactone] 50 mg PO DAILY 07/14/22 [History] traZODone HCL [Desyrel] 50 mg PO HS PRN 07/14/22 [History] Atorvastatin [Lipitor] 40 mg PO HS #30 tab 07/15/22 [Rx] Clopidogrel [Plavix] 75 mg PO DAILY #30 tab 07/15/22 [Rx] Follow up Appointment(s)/Referral(s): Manuel Kong MD [Primary Care Provider] - 1-2 days Patient Instructions/Handouts: Ischemic Stroke (DC), Safe Use of Anticoagulants (DC) Discharge Disposition: HOME SELF-CARE
--- NOTE | 2022-07-15 19:24 | P.CONS ---
History of Present Illness - Reason for Consult Consult date: 07/15/22 TIA, r/o hypercoaguable state Requesting physician: Yoana Nayak - Chief Complaint stroke like sx - History of Present Illness Patient is a 52 year old female with a significant history of TIA, ETOH abuse and a 31 pack year smoker (quit 2 years ago). We were consulted due to TIA and to r/o hypercoaguable state. Pt presented to the ER with complaints of headache and expressive aphasia. Pt received TPA upon presentation to the ER and symptoms resolved within 20 minutes of TPA infusion. Pt denies any neuro deficits at this time. She reports feeling well and at baseline. Pt has hx of TIA in 2017, at which time she also recived TPA with similar resolution of symptoms. Pt is currently on 81mg aspirin daily. She reports being worked up by a form grader at that time, but is unable to recall doctors name and what tests were done at that time, but states all testing was normal. She denies family hx of strokes. Neurology following, EEG ordered, CT head upon presentation negative, repeat CT head post TPA also negative for acute findings. ECHO revealed EF 55-60% with n ormal LV function. CT angio head/neck negative for dissection/significant stenosis. Coags normal. Hgb 11.1, platelets 237,000. Review of Systems 10 point ROS is negative except as stated in HPI Past Medical History Past Medical History: CVA/TIA, GERD/Reflux, Hypertension, Sleep Apnea/CPAP/BIPAP Additional Past Medical History / Comment(s): Hx difficulty with speech/received TPA with resolvement of speech problem(2017), was told later she did not have a stroke. Hx Toxemia with . Abdominal pain, PCOS. "Touch of Sleep Apnea", no CPAP use. History of Any Multi-Drug Resistant Organisms: None Reported Past Surgical History: Section, Ear Surgery, Tubal Ligation Additional Past Surgical History / Comment(s): MAURO, cystoscopy, left ganglion cyst removed, hysteroscopy-unable to do ablation because bladder adhered to uterus, D&C, bilateral myringotomy/tubes. Past Anesthesia/Blood Transfusion Reactions: No Reported Reaction Past Psychological History: Anxiety, Depression Additional Psychological History / Comment(s): Clausterphobia. Smoking Status: Former smoker Past Alcohol Use History: Heavy Additional Past Alcohol Use History / Comment(s): Started smoking in 1987, quit in 2016, resumed smoking in 2018 and quit again 11/27/2020, was a 1ppd smoker. Drinks 6 beers 4-5 days per week. Past Drug Use History: None Reported - Past Family History Father Family Medical History: COPD, Hyperlipidemia, Hypertension Mother Family Medical History: Coronary Artery Disease (CAD), Diabetes Mellitus, Hyperlipidemia, Hypertension Additional Family Medical History / Comment(s): Mother had CABG at the age of 52 yrs. Medications and Allergies Home Medications Medication Instructions Recorded Confirmed Type Aspirin 81 mg PO DAILY 02/28/17 07/14/22 History Metoprolol Succinate (ER) [Toprol 25 mg PO DAILY 07/22/21 07/14/22 History XL] Omeprazole [PriLOSEC] 40 mg PO DAILY 07/22/21 07/14/22 History Sertraline HCl [Zoloft] 50 mg PO DAILY 07/22/21 07/14/22 History Spironolactone [Aldactone] 50 mg PO DAILY 07/14/22 07/14/22 History traZODone HCL [Desyrel] 50 mg PO HS PRN 07/14/22 07/14/22 History Atorvastatin [Lipitor] 40 mg PO HS #30 tab 07/15/22 Rx Clopidogrel [Plavix] 75 mg PO DAILY #30 tab 07/15/22 Rx Allergies Allergy/AdvReac Type Severity Reaction Status Date / Time No Known Allergies Allergy Verified 07/14/22 06:56 Physical Exam Vitals: Vital Signs Temp Pulse Resp BP Pulse Ox 07/15/22 13:00 71 18 07/15/22 12:30 76 22 07/15/22 12:00 74 13 131/81 97 07/15/22 11:30 70 9 L 131/81 07/15/22 11:00 73 19 07/15/22 10:30 73 19 07/15/22 10:00 77 28 H 07/15/22 09:30 89 24 132/81 07/15/22 09:00 77 20 132/81 07/15/22 08:30 14 07/15/22 08:00 97 07/15/22 07:30 61 15 07/15/22 07:00 72 14 99/58 97 07/15/22 06:00 62 16 102/61 07/15/22 05:00 65 6 L 95/58 07/15/22 04:00 97.6 F 61 13 117/85 94 L 07/15/22 03:00 64 20 117/73 07/15/22 02:00 64 16 112/81 07/15/22 01:00 58 L 14 155/90 07/15/22 00:00 97.7 F 71 16 124/77 97 07/14/22 23:00 71 16 126/84 07/14/22 22:00 68 9 L 153/94 07/14/22 21:00 72 21 140/88 07/14/22 20:00 98.1 F 67 17 07/14/22 19:00 89 17 139/93 96 07/14/22 18:00 71 14 126/81 97 07/14/22 17:00 87 20 126/81 98 07/14/22 16:00 97.9 F 80 18 138/90 96 Intake and Output 07/15/22 07/15/22 07/15/22 06:59 14:59 22:59 Intake Total 200 400 Balance 200 400 Intake: Oral 200 400 Other: # Voids 1 1 # Bowel Movements 1 Weight 67.3 kg - Constitutional General appearance: average body habitus, no acute distress - EENT Eyes: anicteric sclerae, EOMI, PERRLA ENT: hearing grossly normal - Respiratory Respiratory: bilateral: CTA - Cardiovascular Rhythm: regular Heart sounds: normal: S1, S2 Abnormal Heart Sounds: no systolic murmur, no diastolic murmur, no rub, no S3 Gallop, no S4 Gallop, no click, no other - Gastrointestinal General gastrointestinal: soft, no tenderness - Integumentary Integumentary: normal - Neurologic grossly intact - Musculoskeletal Musculoskeletal: strength equal bilaterally - Psychiatric Psychiatric: A&O x's 3, appropriate affect, intact judgment & insight Results CBC & Chem 7: 07/15/22 05:19 07/15/22 05:19 Labs: Abnormal Lab Results - Last 24 Hours (Table) 07/15/22 07/15/22 Range/Units 05:19 05:19 RBC 3.72 L (3.80-5.40) m/uL Hgb 11.1 L (11.4-16.0) gm/dL Glucose 100 H (74-99) mg/dL Triglycerides 153.00 H (0.00-149.00) mg/dL Cholesterol 270.00 H (0.00-200.00) mg/dL LDL Cholesterol, Calc 151.2 H (0.0-131.0) mg/dL HDL Cholesterol 88.20 H (40.00-60.00) mg/dL Comments: ECHO and CT angio reviewed CT Scan - head: report reviewed Assessment and Plan (1) TIA (transient ischemic attack) Status: Acute Priority: High Code(s): G45.9 - TRANSIENT CEREBRAL ISCHEMIC ATTACK, UNSPECIFIED SNOMED Code(s): 429839436 Plan: TIA: -Hx of TIA. Last occurred in 2017. No known blood clotting disorders. She reports being worked up by a form grader at that time, but is unable to recall doctors name and what tests were done at that time, but states all testing was normal. Instructed pt to see if she is able to locate previous form grader's name/office, so records could be requested from previous workup -Pt has returned to baseline, symptoms have resolved post-TPA -Neurology following. EEG ordered, CT head upon presentation negative, repeat CT head post TPA also negative for acute findings. ECHO revealed EF 55-60% with normal LV function. CT angio head/neck negative for dissection/significant stenosis. -Coags normal. Hgb 11.1, platelets 237,000. -Hypercoaguable workup ordered. TIA recurrence may be caused by hx of smoking and ETOH abuse, as previous workup by hematology negative per patient. However, will await pending labs and will schedule f/u in clinic for further workup to r/o underlying hypercoaguable state. Pt will remain on 81 mg aspirin daily. attests: I have performed H&P and developed impression and plan of care for patient, discussed with dictator. I agree with dictated note, documented as a scribe.
[2022-07-15] MEDS ORDERED: ATORVASTATIN 40 MG TAB PO SCH (21:00)
[2022-07-15 21:28] LABS: Cardiolipin Ab IgG Interp NEGATIVE (NEGATIVE); Cardiolipin Ab IgM Interp NEGATIVE (NEGATIVE); Cardiolipin IgM Antibody <1.5 U/mL
--- NOTE | 2022-07-15 21:28 | EEG ---
DATE OF SERVICE: 07/15/2022 ELECTROENCEPHALOGRAM REPORT PREAMBLE: This is a 52-year-old female with transient aphasia. Rule out focal seizure. EEG FINDINGS: This is a 21-channel digital EEG recorded with video component, utilizing 10/20 international system with referential and bipolar montages. Background consists of well developed, well regulated moderate voltage activity in mixed 10 hertz alpha, with some fast frequency beta activity seen in bihemispheric region. Background is posterior dominant and reactive to eye opening and closing. There is some sweat-type artifact seen in T4 electrode. Photic driving response was seen with some flash frequencies. Drowsiness was seen with appearance of symmetric theta frequency rhythm. Deeper stages of sleep were not seen. No focal or generalized epileptiform activity was seen. IMPRESSION: This is a normal awake and drowsy EEG. No focal, lateralized, or epileptiform activity was seen. MMLILIANE / SABINON: [id number] / MTDD
[2022-07-16] MEDS ORDERED: ASPIRIN 81 MG PO SCH (09:00)
[2022-07-18 14:32] LABS: APTT 38 Sec(s) (<43); Dilute Russell Viper Venom 40 Sec(s) (<44)
== END 2022-07-15 16:30 | disposition home or self-care (01) | DRG 62 ==
LOC: EC 23:19 → 2SICU 07-14 01:49
PROVIDERS: ADMIT Internal Medicine; ATTEND Internal Medicine
DX: I63.89 Other cerebral infarction (principal); E87.1 Hypo-osmolality and hyponatremia; R47.01 Aphasia; I10 Essential (primary) hypertension; Z87.891 Personal history of nicotine dependence; J44.9 Chronic obstructive pulmonary disease, unspecified; K21.9 Gastro-esophageal reflux disease without esophagitis; F40.240 Claustrophobia; E28.2 Polycystic ovarian syndrome; E78.5 Hyperlipidemia, unspecified; E87.5 Hyperkalemia; F32.A Depression, unspecified; F10.20 Alcohol dependence, uncomplicated; F41.9 Anxiety disorder, unspecified; R29.702 NIHSS score 2; R47.1 Dysarthria and anarthria; Z79.02 Long term (current) use of antithrombotics/antiplatelets; Z79.82 Long term (current) use of aspirin; Z79.899 Other long term (current) drug therapy; Z82.49 Family history of ischemic heart disease and other diseases of the circulatory system; Z82.5 Family history of asthma and other chronic lower respiratory diseases; Z86.73 Personal history of transient ischemic attack (TIA), and cerebral infarction without residual deficits; Z56.0 Unemployment, unspecified; Z71.41 Alcohol abuse counseling and surveillance of alcoholic
CPT/HCPCS: 36415; 37195; 70450; 70496; 70498; 71046; 80048; 80053; 80061; 82140; 82550; 83036; 84484; 85025; 85610; 85613; 85730; 86146; 86147; 93005; 93306; 95816; 96374; 99291; 99292

== ENCOUNTER → 2022-07-19 | Outpatient (CLI) | payer BC ==
--- NOTE | 2022-07-19 10:14 | CT ---
EXAMINATION TYPE: CT chest w con DATE OF EXAM: 07/19/2022 COMPARISON: 11/02/2021 HISTORY: lung nodule CT DLP: 321.2 mGycm Automated exposure control for dose reduction was used. CONTRAST: CT scan of the chest is performed with IV Contrast, patient injected with 100 mL of Isovue 300. FINDINGS: LUNGS: There is been resolution of previously noted groundglass nodular density right upper lobe whic h is likely inflammatory in nature. No discrete pulmonary nodules are present at this time. No consol idative process. No pleural effusion or mass. MEDIASTINUM: There are no greater than 1 cm hilar or mediastinal lymph nodes. No pericardial effusi on is seen. Thoracic aorta is of normal caliber. The heart is not enlarged. Small sliding-type hiata l hernia noted. UPPER ABDOMEN: Changes of hepatic steatosis. OTHER: No additional significant abnormality is seen. IMPRESSION: There is been resolution of previously noted groundglass nodular density right upper lobe which is li robert inflammatory in nature. No discrete pulmonary nodules are present at this time.
== END | disposition home or self-care (01) ==
LOC: RADCTMAIN 08:53
PROVIDERS: ATTEND Internal Medicine
DX: R91.1 Solitary pulmonary nodule (principal)
CPT/HCPCS: 71260; Q9967

== ENCOUNTER → 2022-09-23 | Outpatient (CLI) | payer BC ==
--- NOTE | 2022-09-23 08:43 | MR ---
EXAMINATION TYPE: MR brain wo con DATE OF EXAM: 09/23/2022 8:19 AM COMPARISON: CT brain 07/15/2022, 07/13/2022. CLINICAL INDICATION:Female, 52 years old with history of R47.01 aphasia; PHH, TECHNIQUE: Multi planar, multi sequence imaging was performed through the brain. No gadolinium was gi curry. FINDINGS: The norris-white junctions, ventricular system, and cisterns appear unremarkable. No FLAIR signal abnor malities identified. Midline structures show no abnormality. Diffusion-weighted imaging shows no evid ence of restricted diffusion. The susceptibility weighted images do not reveal any evidence for micro -hemorrhage. The bone marrow signal is within normal limits. The paranasal sinuses and globes are unremarkable. IMPRESSION: No evidence of intracranial mass or acute/subacute infarct.
== END | disposition home or self-care (01) ==
LOC: RADMRIMAIN 07:32
PROVIDERS: ATTEND Physician Assistant
DX: R47.01 Aphasia (principal)
CPT/HCPCS: 70551

== ENCOUNTER → 2022-09-27 | Outpatient (CLI) | payer BC ==
--- NOTE | 2022-09-28 07:42 | MM ---
Reason for Exam: Screening (asymptomatic). Last mammogram was performed 1 year(s) and 9 month(s) ago. Patient History: Menarche at age 15. First Full-Term at age 25. Postmenopausal. Patient used Hormonal Contraceptives for 15 years. Risk Values: Estrellita 5 year model risk: 0.8%. NCI Lifetime model risk: 7.2%. Prior Study Comparison: 01/24/2017 Bilateral Screening Mammogram, [facility]. 12/28/2020 Bilateral Screening Mammogram, [facility]. Tissue Density: There are scattered fibroglandular densities. Findings: Analyzed By CAD. Chronic nodular asymmetric density lateral subareolar right breast. A few small benign oil cyst calcifications are redemonstrated. There is no suspicious group of microcalcifications or new suspicious mass in either breast. Overall Assessment: Benign, BI-RAD 2 Management: Screening Mammogram of both breasts in 1 year. . Patient should continue monthly self-breast exams. A clinical breast exam by your physician is recommended on an annual basis. This exam should not preclude additional follow-up of suspicious palpable abnormalities. Note on Estrellita scores and lifetime risk: 1. A Estrellita score greater than 3% is considered moderate risk. If this is the case, consider specialist referral to assess eligibility for a risk reducing agent. 2. If overall lifetime risk for the development of breast cancer is 20% or higher, the patient may qualify for future screening with alternating mammogram and breast MRI. Electronically signed and approved by: Torri Wetzel M.D. Radiologist
== END | disposition home or self-care (01) ==
LOC: RADMAMWWP 07:58
PROVIDERS: ATTEND Family Medicine
DX: Z12.31 Encounter for screening mammogram for malignant neoplasm of breast (principal); Z78.0 Asymptomatic menopausal state
CPT/HCPCS: 77063; 77067

== ENCOUNTER → 2022-10-26 | Outpatient (CLI) | payer BC ==
--- NOTE | 2022-10-27 11:03 | CA ---
Transthoracic Echo Report Name: Karlee Maza Age: 52 Gender: F : 1970 Exam Date: 10/26/2022 14:06 Exam Location: [facility] Ht (in): 63 Wt (lb): 154 Ordering Physician: Manuel Kong MD Attending/Referring Phys: Mercedes Castro [facility] Associate Professor Of Literacy Daylin Dan RDCS Procedure CPT: Indications: I63.9 Cardiac Hx: Technical Quality: Poor Contrast 1: Total Dose (mL): Contrast 2: Total Dose (mL): MEASUREMENTS (Male / Female) Normal Values 2D ECHO LV Diastolic Diameter PLAX 4.4 cm 4.2 - 5.9 / 3.9 - 5.3 cm LV Systolic Diameter PLAX 3.1 cm IVS Diastolic Thickness 1.2 cm 0.6 - 1.0 / 0.6 - 0.9 cm LVPW Diastolic Thickness 1.3 cm 0.6 - 1.0 / 0.6 - 0.9 cm LV Relative Wall Thickness 0.6 RV Internal Dim ED PLAX 2.7 cm LA Systolic Diameter LX 3.3 cm 3.0 - 4.0 / 2.7 - 3.8 cm LA Volume 34.9 cm??? 18 - 58 / 22 - 52 cm??? M-MODE Aortic Root Diameter MM 3.3 cm MV E Point Septal Separation 0.2 cm DOPPLER AV Peak Velocity 125.8 cm/s AV Peak Gradient 6.3 mmHg MV Area PHT 3.2 cm??? Mitral E Point Velocity 83.1 cm/s Mitral A Point Velocity 102.0 cm/s Mitral E to A Ratio 0.8 MV Deceleration Time 238.7 ms MV E' Velocity 7.1 cm/s Mitral E to MV E' Ratio 11.7 FINDINGS Left Ventricle Left ventricular ejection fraction is estimated at 55-60 %. Left ventricular cavity size normal. Mildly decreased LV wall thickness. No obvious regional wall motion abnormality. No significant diastolic dysfunction Right Ventricle Normal right ventricular size and function. Unable to estimate the right ventricular systolic pressure. Right Atrium Normal right atrial size. Negative agitated saline bubble study for right to left shunt. Left Atrium Normal left atrial size. Mitral Valve Structurally normal mitral valve. No mitral stenosis, regurgitation or prolapse. Aortic Valve Trileaflet aortic valve. No aortic valve stenosis or regurgitation. Tricuspid Valve Structurally normal tricuspid valve. No tricuspid stenosis, regurgitation or prolapse. Pulmonic Valve Structurally normal pulmonic valve. No pulmonic regurgitation. Pericardium No pericardial effusion. Aorta Normal size aortic root and proximal ascending aorta. CONCLUSIONS Normal LV size. Mild concentric LVH Normal LV systolic function. EF estimated 55% No significant valvular heart disease No significant chamber size abnormality No upcpt-wc-ptcc shunt on bubble study No significant difference when compared echo from 09/2016 Previewed by: Dr Neal Diallo (Electronically Signed) Final Date: 27 October 2022 11:02
== END | disposition home or self-care (01) ==
LOC: RADECHMAIN 13:36
PROVIDERS: ATTEND Family Medicine
DX: I63.9 Cerebral infarction, unspecified (principal)
CPT/HCPCS: 93306